=== PATIENT | female | born 1970 | race Caucasian/White ===

== ENCOUNTER → 2016-05-10 | Outpatient (CLI) | payer OTHER ==
[2016-05-10 14:01] LABS: ALT/SGPT 28 U/L (12-78); AST/SGOT 12 U/L (15-37); BLOOD UREA NITROGEN 13 mg/dl (7-18); BUN/CREATININE RATIO 13.8 (10-20); CALCIUM 8.3 mg/dl (8.5-10.1); CARBON DIOXIDE 21 mmol/L (21-32); CHLORIDE 112 mmol/L (98-107); CREATININE 0.94 mg/dl (0.60-1.20); GLUCOSE 121 mg/dl (70-99); POTASSIUM 4.1 mmol/L (3.5-5.1); SODIUM 143 mmol/L (136-145)
[2016-05-10 14:02] LABS: BASO % 0.4 %; BASO ABS # 0.03 K/uL (0-0.2); COMPLETE YES; EOS % 1.2 %; HEMATOCRIT 38.7 % (37-47); IG% 0.6 %; LYMPH % 32.3 %; LYMPH ABS # 2.22 K/uL (1.2-3.4); MEAN CELL VOLUME 87.4 fL (80-100); MEAN CORPUSCULAR HEMOGLOBIN 29.6 pg (25-34); MEAN CORPUSCULAR HGB CONC 33.9 g/dl (32-36); MEAN PLATELET VOLUME 10.6 fL (7.4-10.4); MONO % 7.4 %; NEUT % 58.1 %; PLATELET COUNT 167 K/uL (130-400); RED BLOOD COUNT 4.43 M/uL (4.2-5.4); WHITE BLOOD COUNT 6.87 K/uL (4.8-10.8)
[2016-05-10 14:12] LABS: ALB/GLOB RATIO 0.9 (0.9-2); ALKALINE PHOSPHATASE 108 U/L (45-117); CHOLESTEROL 173 mg/dl (0-200); CHOLESTEROL/HDL RATIO 3.1; HDL CHOLESTEROL 56 mg/dl; LDL CHOLESTEROL CALCULATED 95 mg/dl; TRIGLYCERIDES 109 mg/dl (0-150); VERY LOW DENSITY LIPOPROT CALC 22 mg/dl
== END | disposition home or self-care (01) ==
LOC: C.LABMFLN 08:02
PROVIDERS: ATTEND Family Medicine
DX: Z00.00 Encounter for general adult medical examination without abnormal findings (principal); K21.9 Gastro-esophageal reflux disease without esophagitis; K76.0 Fatty (change of) liver, not elsewhere classified; G43.909 Migraine, unspecified, not intractable, without status migrainosus; R53.83 Other fatigue; E66.9 Obesity, unspecified

== ENCOUNTER → 2016-08-21 | Outpatient (CLI) | payer OTHER ==
[~2016-08-21] MED LIST: ESCI10TA17 PO; MELO15TA4 PO; PANT40TA PO; POLY335019 PO; RIZA10TA18 PO; SERT-234 PO; TOPI25TA10 PO; TOPI25TA99 PO; TOPI50TA16; TOPI50TA16 PO; WHEATAB2 PO; ZLF/100 PO
[2016-08-21 14:30] LABS: ESTIMATED AVERAGE GLUCOSE 114 mg/dl; HA1C FLAG Normal (Normal)
[2016-08-21 14:46] LABS: ALT/SGPT 23 U/L (12-78); AST/SGOT 11 U/L (15-37); BLOOD UREA NITROGEN 16 mg/dl (7-18); BUN/CREATININE RATIO 17.3 (10-20); CARBON DIOXIDE 23 mmol/L (21-32); CHLORIDE 113 mmol/L (98-107); CREATININE 0.92 mg/dl (0.60-1.20); GLUCOSE 128 mg/dl (70-99); SODIUM 143 mmol/L (136-145)
[2016-08-21 14:49] LABS: ALB/GLOB RATIO 0.9 (0.9-2); ALKALINE PHOSPHATASE 95 U/L (45-117)
== END | disposition home or self-care (01) ==
LOC: C.LABMFLN 11:09
PROVIDERS: ATTEND Family Medicine
DX: R73.01 Impaired fasting glucose (principal); E55.9 Vitamin D deficiency, unspecified; E53.8 Deficiency of other specified B group vitamins

== ENCOUNTER → 2016-11-01 | Outpatient (CLI) | payer OTHER ==
[~2016-11-01] MED LIST changes: -SERT-234 PO; -TOPI25TA10 PO; -TOPI25TA99 PO; -TOPI50TA16; -ZLF/100 PO
[2016-11-01 17:51] LABS: BASO % 0.4 %; BASO ABS # 0.02 K/uL (0-0.2); COMPLETE YES; EOS % 1.1 %; HEMATOCRIT 34.2 % (37-47); IG% 0.4 %; LYMPH % 28.7 %; LYMPH ABS # 1.63 K/uL (1.2-3.4); MEAN CELL VOLUME 89.1 fL (80-100); MEAN CORPUSCULAR HEMOGLOBIN 29.2 pg (25-34); MEAN CORPUSCULAR HGB CONC 32.7 g/dl (32-36); MEAN PLATELET VOLUME 9.9 fL (7.4-10.4); MONO % 6.9 %; NEUT % 62.5 %; PLATELET COUNT 120 K/uL (130-400); RED BLOOD COUNT 3.84 M/uL (4.2-5.4); WHITE BLOOD COUNT 5.68 K/uL (4.8-10.8)
== END | disposition home or self-care (01) ==
LOC: C.LABMFLN 15:04
PROVIDERS: ATTEND Physician Assistant
DX: T14.8 Other injury of unspecified body region (principal); X58.XXXA Exposure to other specified factors, initial encounter

== ENCOUNTER → 2016-12-18 | Outpatient (CLI) | payer OTHER ==
[2016-12-18 14:03] LABS: BASO % 0.4 %; BASO ABS # 0.02 K/uL (0-0.2); COMPLETE YES; EOS % 1.4 %; HEMATOCRIT 36.2 % (37-47); IG% 0.2 %; LYMPH % 23.7 %; LYMPH ABS # 1.16 K/uL (1.2-3.4); MEAN CELL VOLUME 88.7 fL (80-100); MEAN CORPUSCULAR HEMOGLOBIN 29.2 pg (25-34); MEAN CORPUSCULAR HGB CONC 32.9 g/dl (32-36); MEAN PLATELET VOLUME 10.8 fL (7.4-10.4); MONO % 7.2 %; NEUT % 67.1 %; PLATELET COUNT 112 K/uL (130-400); RED BLOOD COUNT 4.08 M/uL (4.2-5.4); WHITE BLOOD COUNT 4.89 K/uL (4.8-10.8)
== END | disposition home or self-care (01) ==
LOC: C.LABMFLN 09:15
PROVIDERS: ATTEND Physician Assistant
DX: D64.9 Anemia, unspecified (principal); D69.6 Thrombocytopenia, unspecified; E55.9 Vitamin D deficiency, unspecified; E53.8 Deficiency of other specified B group vitamins

== ENCOUNTER → 2017-01-17 | Outpatient (CLI) | payer OTHER ==
[~2017-01-17] MED LIST changes: -ESCI10TA17 PO; +SERT-234 PO; +TOPI25TA10 PO; +TOPI25TA99 PO; +ZLF/100 PO
[2017-01-17 18:11] LABS: URINE APPEARANCE CLEAR (CLEAR); URINE BILIRUBIN NEG (NEG); URINE COLOR YELLOW; URINE NITRITE NEG (NEG); URINE PH 6.5 (4.5-7.5); URINE SPECIFIC GRAVITY 1.024 (1.000-1.030); UROBILINOGEN NEG (NEG); ZZUR CULT IF INDIC CLEAN CATCH NO
[2017-01-17 18:16] LABS: BASO % 0.6 %; BASO ABS # 0.03 K/uL (0-0.2); COMPLETE YES; HEMATOCRIT 34.2 % (37-47); IG% 0.2 %; LYMPH % 28.7 %; LYMPH ABS # 1.42 K/uL (1.2-3.4); MEAN CELL VOLUME 89.5 fL (80-100); MEAN CORPUSCULAR HEMOGLOBIN 29.3 pg (25-34); MEAN CORPUSCULAR HGB CONC 32.7 g/dl (32-36); MONO % 6.7 %; NEUT % 61.8 %; PLATELET COUNT 101 K/uL (130-400); PROTHROMBIN TIME (PATIENT) 10.5 SECONDS (9.0-12.0); RED BLOOD COUNT 3.82 M/uL (4.2-5.4); WHITE BLOOD COUNT 4.94 K/uL (4.8-10.8)
[2017-01-17 18:19] LABS: MANUAL MICROSCOPIC REQUIRED? NO; REVIEW REQ? NO
[2017-01-17 18:36] LABS: BLOOD UREA NITROGEN 19 mg/dl (7-18); BUN/CREATININE RATIO 20.8 (10-20); CALCIUM 8.1 mg/dl (8.5-10.1); CARBON DIOXIDE 21 mmol/L (21-32); CHLORIDE 114 mmol/L (98-107); CREATININE 0.92 mg/dl (0.60-1.20); GLUCOSE 81 mg/dl (70-99); POTASSIUM 3.8 mmol/L (3.5-5.1); SODIUM 144 mmol/L (136-145)
== END | disposition home or self-care (01) ==
LOC: C.LABMFLN 11:59
PROVIDERS: ATTEND Orthopaedic Surgery
DX: Z01.810 Encounter for preprocedural cardiovascular examination (principal); Z01.812 Encounter for preprocedural laboratory examination

== ENCOUNTER 2017-02-22 05:10 | Day surgery (SDC) | payer OTHER ==
[2016-12-14 10:44] VITALS: BMI 46.0
--- NOTE | 2016-12-14 11:27 | PAT Medication Instructions ---
Service Date Dec 14, 2016. Current Home Medication List Escitalopram (Lexapro), 10 MG PO QAM Meloxicam (Mobic), 1 TAB PO QAM Pantoprazole (Protonix), 40 MG PO QAM Polyethylene Glycol 3350 (Miralax), 17 GM PO DAILY PRN for Constipation Rizatriptan Benzoate (Maxalt), 10 MG PO UD PRN for Migraine Topiramate (Topamax), 50 MG PO BID Wheat Dextrin (Benefiber), 1 TAB PO UD PRN for Constipation Medication Instructions For Your Scheduled Surgery - Hold the following medications per your surgeon's instructions: Meloxicam (Mobic), 1 TAB PO QAM - Hold the following medications the morning of surgery: Wheat Dextrin (Benefiber), 1 TAB PO UD PRN for Constipation Rizatriptan Benzoate (Maxalt), 10 MG PO UD PRN for Migraine Polyethylene Glycol 3350 (Miralax), 17 GM PO DAILY PRN for Constipation - Take the following medications the morning of surgery with a sip of water: Topiramate (Topamax), 50 MG PO BID Escitalopram (Lexapro), 10 MG PO QAM Pantoprazole (Protonix), 40 MG PO QAM - Take the following medications as scheduled the night before surgery: Wheat Dextrin (Benefiber), 1 TAB PO UD PRN for Constipation Topiramate (Topamax), 50 MG PO BID Polyethylene Glycol 3350 (Miralax), 17 GM PO DAILY PRN for Constipation If you have any questions please call us at [phone] or [phone] or [phone]
[2016-12-14 12:55] LABS: PROTHROMBIN TIME (PATIENT) 10.8 SECONDS (9.0-12.0)
[2016-12-14 13:07] LABS: BUN/CREATININE RATIO 20.8 (10-20); CALCIUM 8.4 mg/dl (8.5-10.1); CREATININE 0.95 mg/dl (0.60-1.20); POTASSIUM 4.3 mmol/L (3.5-5.1)
[2016-12-14 13:36] LABS: URINE APPEARANCE CLEAR (CLEAR); URINE BILIRUBIN NEG (NEG); URINE COLOR YELLOW; URINE NITRITE NEG (NEG); URINE SPECIFIC GRAVITY 1.025 (1.000-1.030); UROBILINOGEN NEG (NEG); ZZUR CULT IF INDIC CLEAN CATCH NO
[2016-12-14 13:41] LABS: MANUAL MICROSCOPIC REQUIRED? NO; REVIEW REQ? NO
[2017-01-18 09:37] VITALS: BMI 46.0
--- NOTE | 2017-02-20 19:45 | History and Physical ---
History & Physical Date of Service Feb 20, 2017. History & Physical History & Physical Chief Complaint Right knee pain History of Present Illness The patient is a 46 year old female with complaints of right knee pain for some time. She has pain over the inside of her knee and difficulty going up and down stairs. She has tried PT with no relief. MRI demonstrates a medial meniscal tear. She is scheduled for a right partial medial meniscectomy. Past Medical/Surgical History Medical Problems: (1) Anxiety (2) Depression (3) Pulmonary embolism (4) Rheumatoid arthritis Additional History Hepatic Disease: No Endocrine Disorder: No Kidney Disease: No Hypertension: No Heart Disease: No Bleeding Tendencies: No Infectious Diseases: No Allergies Coded Allergies: Aspirin (Verified Allergy, Unknown, BREATHING ISSUES, 12/26/16) Latex1 -Allergic Contact Dermititis (Verified Allergy, Unknown, RASH, HIVES, 12/26/16) Levofloxacin (Verified Allergy, Unknown, VERTIGO, 12/26/16) Loratadine (Verified Allergy, Unknown, RASH, 12/26/16) Zafirlukast (Verified Allergy, Unknown, GI UPSET, 12/26/16) Uncoded Allergies: PRESTIQ (Allergy, Unknown, RASH, 12/14/16) Home Medications Scheduled Escitalopram (Lexapro), 10 MG PO QAM Meloxicam (Mobic), 15 MG PO QAM Pantoprazole (Protonix), 40 MG PO QAM Topiramate (Topamax), 50 MG PO QAM Topiramate (Topamax), 75 MG HS Scheduled PRN Polyethylene Glycol 3350 (Miralax), 17 GM PO DAILY PRN for Constipation Rizatriptan Benzoate (Maxalt), 10 MG PO UD PRN for Migraine Wheat Dextrin (Benefiber), 1 TAB PO UD PRN for Constipation Physical Examination Skin: warm/dry, no rash Eyes: normal inspection, EOMI ENT: normal ENT inspection Head: normocephalic, atraumatic Neck: supple, no adenopathy Respiratory/Chest: lungs clear, normal breath sounds Cardiovascular: regular rate, rhythm, no murmur Abdomen / GI: normal bowel sounds, non tender Extremities: normal inspection, + pertinent finding ((+) Meagan test. Ligaments are intact. ROM 0-110. ) Neurologic/Psych: alert, oriented x 3 Diagnosis Medial meniscal tear of right knee Plan of Treatment Patient is scheduled for a right knee PMM. She has failed conservative therapies of PT and NSAIDs. Risks and benefits were discussed to the surgery. Patient understands the risks and wishes to proceed. All questions were answered to her satisfaction.
[~2017-02-22] VITALS: Ht 157.5 cm; Wt 115.5 kg
[~2017-02-22 05:10] MED LIST changes: +CEFAZOLIN 2000MG IV PUSH 10 ML IV SCH; +LACTATED RINGER'S 1000ML 1,000 ML IV SCH; -TOPI25TA10 PO; -ZLF/100 PO
[2017-02-22 05:35] VITALS: BP 130/83; PULSE 58; TEMP 36.5; O2SAT 96; Ht 157.5 cm; Wt 115.5 kg
[2017-02-22] MEDS ORDERED: CEFAZOLIN 2000MG IV PUSH 10 ML IV SCH (06:00)
[2017-02-22] MEDS ORDERED: LACTATED RINGER'S 1000ML 1,000 ML IV SCH (06:15)
[2017-02-22] MEDS ORDERED: FLUO20CA35 PO (06:15)
[2017-02-22] MEDS ORDERED: MIDAZOLAM HCL 1 MG/ML 2ML VIAL ONE (06:32)
[2017-02-22] MEDS ORDERED: FENTANYL CITRATE INJ 50 MCG/1 ML 2 ML VIAL ONE ×2 (06:32→07:25)
[2017-02-22] MEDS ORDERED: LIDOCAINE/EPINEPHRINE 1% 20 ML VIAL ONE ×2 (06:40→07:11)
[2017-02-22] MEDS ORDERED: BUPIVACAINE 0.5 % 5 MG/1 ML MPF 30ML VIAL ONE (06:41)
[2017-02-22] MEDS ORDERED: EpINEphrine HCL INJ 1 MG/ML 5ML SYRINGE ONE (06:41)
--- NOTE | 2017-02-22 06:57 | History & Physical Bridge Note ---
H&P Re-Evaluation Bridge Note: I have examined the patient, reviewed the History & Physical and in the interval since the performance of the History & Physical I have noted the following changes of clinical significance: No changes noted
[2017-02-22 06:58] LABS: HEMATOCRIT 34.6 % (37-47); MEAN CELL VOLUME 88.9 fL (80-100); MEAN CORPUSCULAR HEMOGLOBIN 28.3 pg (25-34); RED BLOOD COUNT 3.89 M/uL (4.2-5.4); WHITE BLOOD COUNT 4.53 K/uL (4.8-10.8)
[2017-02-22] MEDS ORDERED: HYDR-5688 PO (07:15)
[2017-02-22] MEDS ORDERED: HYDROCODONE/ACETAMOPHEN 5/325MG TAB PO PRN ×2 (07:15)
[2017-02-22] MEDS ORDERED: ONDANSETRON INJ 2 MG/ML 2 ML VIAL IV PRN ×2 (07:15→07:30)
[2017-02-22] MEDS ORDERED: ACETAMINOPHEN 325 MG TAB PO PRN (07:15)
--- NOTE | 2017-02-22 07:20 | Discharge Instructions ---
Discharge Instructions Date of Service Feb 22, 2017. Admission Reason for Admission: Right Knee Medial Meniscus Tear Discharge Discharge Diagnosis / Problem: S/P PMM Discharge Goals Goal(s): Decrease discomfort, Improve function Activity Recommendations Activity Limitations: per Instructions/Follow-up section . Instructions / Follow-Up Instructions / Follow-Up ACTIVITY RECOMMENDATIONS: * You may walk on the leg with or without crutches as comfort permits. * Bending of the knee should start at once. * Do not shower for 48 hours following surgery. SPECIAL CARE INSTRUCTIONS: * You may cleanse the skin adjacent to the small wounds with soap and water at the time of the first dressing change. * The application of an ice bag to the front and sides of the knee will decrease swelling and discomfort for the first 48 hours. * The small incisions may be sore and develop bruising. This bruising does not require any special care. SPECIAL PRECAUTIONS: * If you experience unusual pain unrelieved by prescriptions, temperature elevation (100 degrees F. or above) or progressive swelling or bleeding, you should contact our office at for further evaluation. * You may have been prescribed pain medication. If you experience nausea and/or fine skin rash, discontinue this medication and contact our office at for an alternate medication. DRESSING: * Dressing should be comfortable and absorb any leakage of fluid and/or blood. * The dressing may become moist or bloodstained. * Dressing may be removed 48 hours after surgery and bandaids placed over the small surgical incisions. If can be removed sooner if it becomes very soiled or loose. * Bandaids may be used over next several days as needed and can be discontinued when there is not further drainage from the wounds. FOLLOW UP VISIT: If appointment is not already scheduled: Please call [facility] to make a follow-up appointment for [address] Robertson or his PA at . Current Hospital Diet Patient's current hospital diet: Regular Diet Discharge Diet Recommended Diet: Regular Diet Pending Studies Studies pending at discharge: no Medical Emergencies . Who to Call and When: Medical Emergencies: If at any time you feel your situation is an emergency, please call 911 immediately. . Non-Emergent Contact Non-Emergency issues call your: Surgeon Call Non-Emergent contact if: temperature is above 101.5, your pain is worsening, wound has increased drainage, wound has increased redness . "Provider Documentation" section prepared by Carson Martini. . VTE Core Measure Inpt VTE Proph given/why not?: Treatment not indicated [place] Drug Monitoring Program Search Results: patient reviewed within database, no issues identified
[2017-02-22] MEDS ORDERED: ONDANSETRON INJ 2 MG/ML 2 ML VIAL ONE ×2 (07:22→07:47)
[2017-02-22] MEDS ORDERED: DEXAMETHASONE SOD INJ 4 MG/ML VIAL ONE (07:22)
[2017-02-22] MEDS ORDERED: PROPOFOL IV EMULSION 10 MG/ML 20 ML VIAL IV ONE (07:22)
[2017-02-22] MEDS ORDERED: SUCCINYLCHOLINE 100MG/5ML SYR IV ONE (07:22)
[2017-02-22] MEDS ORDERED: LIDOCAINE HCL 2% 2 ML VIAL (20MG/ML) ONE (07:22)
[2017-02-22] MEDS ORDERED: LARYING-O-JET KIT (LTA) ONE ×2 (07:29)
[2017-02-22] MEDS ORDERED: ATROPINE SULFATE 0.1 MG/ML 5ML SYR IV PRN (07:30)
[2017-02-22] MEDS ORDERED: FENTANYL CITRATE INJ 50 MCG/1 ML 2 ML VIAL IV PRN (07:30)
[2017-02-22] MEDS ORDERED: EpHEDrine SULFATE INJ 50 MG/ML AMP IV PRN (07:30)
[2017-02-22] MEDS ORDERED: HYDROmorphone INJ 1 MG/ML SYR IV PRN (07:30)
[2017-02-22] MEDS ORDERED: HYDROmorphone INJ 2 MG/ML SYR/VIAL ONE (07:42)
[2017-02-22] MEDS ORDERED: KETOROLAC TROMETHAMINE 30 MG/ML VIAL ONE (07:47)
[2017-02-22 08:01] LABS: MEAN CORPUSCULAR HGB CONC 31.8 g/dl (32-36); MEAN PLATELET VOLUME 10.3 fL (7.4-10.4); PLATELET COUNT 90 K/uL (130-400); PLT ESTIMATE DECREASED
[2017-02-22 08:40] VITALS: BP 136/75; PULSE 62; TEMP 36.5; O2SAT 94
--- NOTE | 2017-02-22 08:49 | Anesthesiology Progress Note ---
Anesthesia Post Op Note Date & Time Feb 22, 2017 at 08:48 Vital Signs Pain Intensity: 1 Vital Signs Past 12 Hours Date Time Temp Pulse Resp B/P (MAP) Pulse Ox O2 Delivery O2 Flow Rate FiO2 02/22/17 08:20 Room Air 02/22/17 07:56 36.3 84 16 144/98 96 Oxymask 7 02/22/17 05:35 36.5 58 20 130/83 (99) 96 Room Air Notes Mental Status: alert / awake / arousable, participated in evaluation Pt Amnestic to Procedure: Yes Nausea / Vomiting: adequately controlled Pain: adequately controlled Airway Patency, RR, SpO2: stable & adequate BP & HR: stable & adequate Hydration State: stable & adequate Anesthetic Complications: no major complications apparent
[2017-02-22 09:10] VITALS: BP 118/70; PULSE 59; TEMP 36.6; O2SAT 95
[2017-02-22] MEDS ORDERED: HYDROCODONE/ACETAMOPHEN 5/325MG TAB ONE (09:17)
--- NOTE | 2017-02-22 18:26 | [facility] Operative Report ---
Operative Report Operative Date Feb 22, 2017. Pre-Operative Diagnosis Medial meniscal tear of right knee Post-Operative Diagnosis Medial meniscal tear of right knee, lateral meniscal tear, chondromalacia lateral femoral condyle, chondromalacia trochlea, loose bodies Procedure(s) Performed Right Knee Arthroscopy with Partial Meniscectomy, partial lateral meniscectomy, chondroplasty lateral femoral condyle, chondroplasty trochlea, removal loose bodies Surgeon Dr. Chip Robertson Scraper Hand Surgeon(s) none Estimated Blood Loss 1mL Findings As above Specimens None, Per Surgeon Drains none Anesthesia Gen. Complication(s) None Disposition Recovery Room / PACU Indications 46-year-old female with long-standing right knee. She's fill conservative measures. MRI demonstrates tearing a meniscus. She wishes to proceed with arthroscopy. Description of Procedure MRI demonstrated a complex tear of the posterior horn of the medial meniscus. We discussed various treatment measures. The patient wished to proceed with arthroscopic partial lateral meniscectomy. Risks, benefits and alternatives to surgery including, but not limited to, infection, DVT, pain, stiffness, need for revision surgery, failure to relieve all symptoms, damage to blood vessels, damage to nerves, risk of the anesthesia were discussed with the patient and they wished to proceed. The patient was identified. Laterality was confirmed and marked. The patient received a preoperative antibiotic. They were transferred to the operating room and placed in supine position and induced into general endotracheal anesthesia per the anesthesia staff. A well-padded tourniquet was placed on the thigh and the limb was prepped and draped in the usual standard manner with ChloraPrep. The limb was exsanguinated and the tourniquet was inflated. I made a standard anterolateral viewing portal made through a stab incision and bluntly entered the suprapatellar pouch. Then under spinal needle localization I established an anteromedial portal. There was grade 2 and 3 cartilage of the patella. There was grade 2 and 3 cartilage of the trochlea.The unstable chondral flaps were debrided back to stable base utilizing a shaver. There was grade 2 cartilage of the medial femoral condyle. There was grade 2 cartilage of the medial tibial plateau. The medial meniscus had a tear of the posterior horn. This was a horizontal cleavage type tear with a small radial component near the meniscal root.The unstable chondral flaps were debrided back to stable base utilizing a shaver and meniscus biter. The ACL and PCL were probed and were normal. There was a complex tear of the posterior horn of the lateral meniscus. This was debrided back to a stable base utilizing combination of the shaver as well as meniscal biter. There was grade 3 cartilage of the lateral femoral condyle.The unstable chondral flaps were debrided back to stable base utilizing a shaver. There was grade 1 cartilage of the lateral tibial plateau. There were several loose bodies in the lateral compartment the largest measured 5 mm x 5 mm. These were removed with the arthroscopic shaver. All of the instrumentation was removed from the knee. The portal sites were closed with nylon. A sterile dressing was applied and the tourniquet was released. All needle and sponge counts were correct at the end of the procedure. The patient was transferred to the PACU in stable condition without apparent complication. I attest to the content of the Intraoperative Record and any orders documented therein. Any exceptions are noted below.
== END 2017-02-22 09:45 | disposition home or self-care (01) ==
LOC: C.ACU 05:10
PROVIDERS: ATTEND Orthopaedic Surgery
DX: S83.231A Complex tear of medial meniscus, current injury, right knee, initial encounter (principal); S83.271A Complex tear of lateral meniscus, current injury, right knee, initial encounter; M94.29 Chondromalacia, multiple sites; M19.90 Unspecified osteoarthritis, unspecified site; F32.9 Major depressive disorder, single episode, unspecified; F41.9 Anxiety disorder, unspecified; Z86.711 Personal history of pulmonary embolism; G47.33 Obstructive sleep apnea (adult) (pediatric); K21.9 Gastro-esophageal reflux disease without esophagitis; E66.01 Morbid (severe) obesity due to excess calories; Z87.442 Personal history of urinary calculi; X58.XXXA Exposure to other specified factors, initial encounter

== ENCOUNTER → 2017-03-15 | Outpatient (CLI) | payer OTHER ==
[~2017-03-15] MED LIST changes: -CEFAZOLIN 2000MG IV PUSH 10 ML IV SCH; +CHOL1000 PO; +CYAN10005 PO; +FLUO20CA35 PO; +HYDR-5688 PO; -LACTATED RINGER'S 1000ML 1,000 ML IV SCH; +PROP1TAB PO
== END | disposition home or self-care (01) ==
LOC: C.LABMFLN 14:52
PROVIDERS: ATTEND Physician Assistant
DX: R15.9 Full incontinence of feces (principal); R19.7 Diarrhea, unspecified

== ENCOUNTER → 2017-03-29 | Day surgery (SDC) | payer OTHER ==
[2017-03-28 14:04] VITALS: Ht 157.5 cm; Wt 110.0 kg
[~2017-03-29] VITALS: Ht 157.5 cm; Wt 110.0 kg
[~2017-03-29] MED LIST changes: +ATROPINE SULFATE 0.1 MG/ML 5ML SYR IV PRN; +EpHEDrine SULFATE INJ 50 MG/ML AMP IV PRN; -HYDR-5688 PO; +LIDOCAINE HCL 2% 2 ML VIAL (20MG/ML) ONE; -MELO15TA4 PO; +MIDAZOLAM HCL 1 MG/ML 2ML VIAL ONE; +ONDANSETRON INJ 2 MG/ML 2 ML VIAL ONE; +PROPOFOL IV EMULSION 10 MG/ML 20 ML VIAL IV ONE; -SERT-234 PO; +SODIUM CHLORIDE 0.9% 500ML 500 ML IV ONE; -WHEATAB2 PO
--- NOTE | 2017-03-29 15:51 | Endo History and Physical ---
History & Physical Date of Service: Mar 29, 2017. Chief Complaint: diarrhea Referring Physician: Janae Farrell History of Present Illness 46 yo CF who presents for colonoscopy secondary to diarrhea. Past Surgical History Hx Cardiac Surgery: No Hx Internal Defibrillator: No Hx Pacemaker: No Hx Abdominal Surgery: Yes (c section x3, tubal, lap LSO, alam, partial hysterectomy then full hyster) Hx of Implantable Prosthesis: No Hx Post-Op Nausea and Vomiting: No Hx Cancer Surgery: No Hx Orthopedic: Yes (B/L CTR , RT ELBOW ULNAR NERVE RELEASE, RT KNEE SCOPE) Hx Urinary Tract Surgery: No Family History Colon CA Social History Smoking Status: Never Smoker Hx Substance Use: No Hx Alcohol Use: No Allergies Coded Allergies: Aspirin (Verified Allergy, Unknown, BREATHING ISSUES, 03/28/17) Desvenlafaxine (Verified Allergy, Unknown, rash, 03/29/17) Latex1 -Allergic Contact Dermititis (Verified Allergy, Unknown, RASH, HIVES, 03/28/17) Levofloxacin (Verified Allergy, Unknown, VERTIGO, 03/28/17) Loratadine (Verified Allergy, Unknown, RASH, 03/28/17) Zafirlukast (Verified Allergy, Unknown, GI UPSET, 03/28/17) Current Medications Reported Home Medications Medications Dose Route/Sig Max Daily Dose Days Date Category Inderal (Propranolol HCl) 60 Mg Tab 60 Mg PO QAM 03/28/17 Reported Vitamin B-12 (Cyanocobalamin) 1,000 Mcg Tab 1,000 Mcg PO QAM 03/28/17 Reported Vitamin D3 (Cholecalciferol) 1,000 Unit Tab 1 Tab PO QAM 03/28/17 Reported Prozac (Fluoxetine HCl) 20 Mg Cap 20 Mg PO QAM 02/22/17 Reported Topamax (Topiramate) 25 Mg Tab 25 Mg PO HS 01/18/17 Reported Topamax (Topiramate) 50 Mg Tab 50 Mg PO QAM 01/18/17 Reported Miralax (Polyethylene Glycol 3350) 1 Pow Pow 17 Gm PO DAILY PRN 12/14/16 Reported Protonix (Pantoprazole Sodium) 40 Mg Tab 40 Mg PO QAM 12/14/16 Reported Maxalt (Rizatriptan Benzoate) 10 Mg Tab 10 Mg PO UD PRN 12/14/16 Reported Vital Signs Weight (Kilograms): 110 Height (Feet): 5 Height (Inches): 2 Date Time Temp Pulse Resp B/P (MAP) Pulse Ox O2 Delivery O2 Flow Rate FiO2 03/29/17 15:34 61 104/52 97 03/29/17 14:42 36.5 70 18 133/74 (93) 98 Room Air Physical Exam General Appearance: WD/WN, no apparent distress Respiratory/Chest: Auscultation: breath sounds normal Cardiovascular: Heart Auscultation: RRR Abdomen: Bowel Sounds: normal Inspection & Palpation: soft, non-distended, no tenderness, guarding & rebound Assessment and Plan Assessment: 46 yo CF who presents for colonoscopy secondary to diarrhea. Plan: Proceed with colonoscopy.
--- NOTE | 2017-03-29 16:30 | Anesthesiology Progress Note ---
Anesthesia Post Op Note Date & Time Mar 29, 2017 at 16:29 Vital Signs Vital Signs Past 12 Hours Date Time Temp Pulse Resp B/P (MAP) Pulse Ox O2 Delivery O2 Flow Rate FiO2 03/29/17 16:13 69 18 103/64 (77) 95 Room Air 03/29/17 15:34 61 104/52 97 03/29/17 14:42 36.5 70 18 133/74 (93) 98 Room Air Notes Mental Status: alert / awake / arousable, participated in evaluation Pt Amnestic to Procedure: Yes Nausea / Vomiting: adequately controlled Pain: adequately controlled Airway Patency, RR, SpO2: stable & adequate BP & HR: stable & adequate Hydration State: stable & adequate Anesthetic Complications: no major complications apparent
--- NOTE | 2017-03-29 16:32 | Discharge Instructions ---
Endoscopy Patient Instructions Date / Procedure(s) Performed Mar 29, 2017. Colonoscopy Allergy Information Coded Allergies: Aspirin (Verified Allergy, Unknown, BREATHING ISSUES, 03/28/17) Desvenlafaxine (Verified Allergy, Unknown, rash, 03/29/17) Latex1 -Allergic Contact Dermititis (Verified Allergy, Unknown, RASH, HIVES, 03/28/17) Levofloxacin (Verified Allergy, Unknown, VERTIGO, 03/28/17) Loratadine (Verified Allergy, Unknown, RASH, 03/28/17) Zafirlukast (Verified Allergy, Unknown, GI UPSET, 03/28/17) Discharge Date / Findings Mar 29, 2017. Random colon biopsies Stool aspirate collected Internal hemorrhoids Medication Instructions OK to resume all medications today as prescribed Reported Home Medications Medications Dose Route/Sig Max Daily Dose Days Date Category Inderal (Propranolol HCl) 60 Mg Tab 60 Mg PO QAM 03/28/17 Reported Vitamin B-12 (Cyanocobalamin) 1,000 Mcg Tab 1,000 Mcg PO QAM 03/28/17 Reported Vitamin D3 (Cholecalciferol) 1,000 Unit Tab 1 Tab PO QAM 03/28/17 Reported Prozac (Fluoxetine HCl) 20 Mg Cap 20 Mg PO QAM 02/22/17 Reported Topamax (Topiramate) 25 Mg Tab 25 Mg PO HS 01/18/17 Reported Topamax (Topiramate) 50 Mg Tab 50 Mg PO QAM 01/18/17 Reported Miralax (Polyethylene Glycol 3350) 1 Pow Pow 17 Gm PO DAILY PRN 12/14/16 Reported Protonix (Pantoprazole Sodium) 40 Mg Tab 40 Mg PO QAM 12/14/16 Reported Maxalt (Rizatriptan Benzoate) 10 Mg Tab 10 Mg PO UD PRN 12/14/16 Reported Provider Instructions Activity Restrictions - No exercising or heavy lifting for 24 hours. - Do not drink alcohol the day of the procedure. - Do not drive a car or operate machinery until the day after the procedure. - Do not make any important decisions or sign important papers in 24 hours after the procedure. Following Day: - Return to full activity which may include returning to work/school. Diet Start your diet with liquids and light foods (jello, soup, juice, toast). Then eat your usual diet if not nauseated. Treatment For Common After Affects For mild abdominal pain, bloating, or excessive gas: - Rest - Eat lightly - Lie on right side Follow-Up Information Follow-up with Janae Farrell as scheduled Anesthesia Information What You Should Know You have had a procedure that required some medicine to reduce anxiety and discomfort. This treatment is called moderate sedation. After receiving the treatment, you may be sleepy, but you will be able to breathe on your own. The effects of the treatment may last for several hours. Follow these instructions along with Activity/Diet recommendations noted above: * Do NOT do anything where dizziness or clumsiness would be dangerous. * Rest quietly at home today, then you can be up and about tomorrow. * Have a responsible person stay with you the rest of today. * You may have had an I.V. today. If so, you may take the dressing off later today. Recommendations Call your doctor if: * Trouble breathing * Continuous vomiting for more than 24 hours * Temperature above 101 degrees * Severe abdominal pain or bloating * Pain not relieved by pain medicine ordered * There is increased drainage or redness from any incision * A large amount of rectal bleeding greater than 2-3 tablespoons. (If you had a polyp/s removed or have hemorrhoids, a small amount of blood - from the rectum is to be expected.) * You have any unanswered questions or concerns. IN THE EVENT OF A SERIOUS EMERGENCY, GO TO THE NEAREST EMERGENCY ROOM Your discharge instructions were prepared by provider Cristopher Gibbons. Patient Instructions Signature Page Brandi Chavira Patient (or Guardian) Signature/Date: I have read and understand the instructions given to me by my caregivers. Caregiver/RN/Doctor Signature/Date: The above-named patient and/or guardian has received patient instructions on this date. + Original Patient Signature Page (only) stays with chart. Please make copy for patient.
--- NOTE | 2017-03-29 16:41 | GI REPORT ---
Procedure Date: 03/29/2017 3:24 PM Procedure: Colonoscopy Indications: Chronic diarrhea Medicines: Monitored Anesthesia Care Complications: No immediate complications. Estimated Blood Loss: Estimated blood loss: none. Procedure: Pre-Anesthesia Assessment: - Prior to the procedure, a History and Physical was performed, and patient medications and allergies were reviewed. The patient's tolerance of previous anesthesia was also reviewed. The risks and benefits of the procedure and the sedation options and risks were discussed with the patient. All questions were answered, and informed consent was obtained. Prior Anticoagulants: The patient has taken no previous anticoagulant or antiplatelet agents. ASA Grade Assessment: III - A patient with severe systemic disease. After reviewing the risks and benefits, the patient was deemed in satisfactory condition to undergo the procedure. After I obtained informed consent, the scope was passed under direct vision. Throughout the procedure, the patient's blood pressure, pulse, and oxygen saturations were monitored continuously. The On-site loaner was introduced through the anus and advanced to the terminal ileum. The colonoscopy was performed without difficulty. The patient tolerated the procedure well. The quality of the bowel preparation was fair. The terminal ileum, the appendiceal orifice and the rectum were photographed. Findings: The perianal and digital rectal examinations were normal. Several random biopsies were obtained with cold forceps for histology in the entire colon. Fluid aspiration for Stool studies was performed in the entire colon. Non-bleeding internal hemorrhoids were found during retroflexion. The hemorrhoids were small. Impression: - Non-bleeding internal hemorrhoids. - Several random biopsies were obtained in the entire colon. - Fluid aspiration was performed. Recommendation: - Resume previous diet. - Continue present medications. - Repeat colonoscopy for surveillance based on pathology results. - Return to primary care physician as previously scheduled. Cristopher Gibbons DO 03/29/2017 4:40:52 PM This report has been signed electronically. Note Initiated On: 03/29/2017 3:24 PM I attest to the content of the Intraoperative Record and orders documented therein, exceptions below
[2017-03-29 16:45] VITALS: BP 122/76; PULSE 56; O2SAT 96
== END | disposition home or self-care (01) ==
LOC: C.GI 14:12
PROVIDERS: ATTEND Internal Medicine
DX: K52.9 Noninfective gastroenteritis and colitis, unspecified (principal); K64.8 Other hemorrhoids; G47.33 Obstructive sleep apnea (adult) (pediatric); Z86.711 Personal history of pulmonary embolism; E66.9 Obesity, unspecified; G43.909 Migraine, unspecified, not intractable, without status migrainosus; Z91.040 Latex allergy status; Z90.49 Acquired absence of other specified parts of digestive tract; Z98.51 Tubal ligation status; Z90.710 Acquired absence of both cervix and uterus; Z98.890 Other specified postprocedural states; Z87.891 Personal history of nicotine dependence; Z80.0 Family history of malignant neoplasm of digestive organs

== ENCOUNTER → 2017-04-20 | Outpatient (CLI) | payer OTHER ==
[~2017-04-20] MED LIST changes: -ATROPINE SULFATE 0.1 MG/ML 5ML SYR IV PRN; -EpHEDrine SULFATE INJ 50 MG/ML AMP IV PRN; -LIDOCAINE HCL 2% 2 ML VIAL (20MG/ML) ONE; -MIDAZOLAM HCL 1 MG/ML 2ML VIAL ONE; -ONDANSETRON INJ 2 MG/ML 2 ML VIAL ONE; -PROPOFOL IV EMULSION 10 MG/ML 20 ML VIAL IV ONE; -SODIUM CHLORIDE 0.9% 500ML 500 ML IV ONE
[2017-04-20 12:48] LABS: BASO % 0.6 %; BASO ABS # 0.03 K/uL (0-0.2); EOS % 1.1 %; EOS ABS # 0.05 K/uL (0-0.5); HEMATOCRIT 36.6 % (37-47); HEMOGLOBIN 12.3 g/dL (12.0-16.0); IG# 0.01 K/uL (0.00-0.02); LYMPH % 24.6 %; LYMPH ABS # 1.16 K/uL (1.2-3.4); MEAN CELL VOLUME 86.7 fL (80-100); MEAN CORPUSCULAR HEMOGLOBIN 29.1 pg (25-34); MEAN CORPUSCULAR HGB CONC 33.6 g/dl (32-36); MEAN PLATELET VOLUME 10.5 fL (7.4-10.4); MONO % 6.6 %; MONO ABS # 0.31 K/uL (0.11-0.59); NEUT % 66.9 %; NEUT ABS # 3.16 K/uL (1.4-6.5); PLATELET COUNT 114 K/uL (130-400); RED CELL DISTRIBUTION WIDTH CV 15.4 % (11.5-14.5); RED CELL DISTRIBUTION WIDTH SD 48.4 fL (36.4-46.3); WHITE BLOOD COUNT 4.72 K/uL (4.8-10.8)
[2017-04-20 13:38] LABS: ALBUMIN 3.3 gm/dl (3.4-5.0); ALT/SGPT 25 U/L (12-78); AST/SGOT 12 U/L (15-37); BLOOD UREA NITROGEN 22 mg/dl (7-18); CALCIUM 8.3 mg/dl (8.5-10.1); CARBON DIOXIDE 22 mmol/L (21-32); CREATININE 1.12 mg/dl (0.60-1.20); GLUCOSE 123 mg/dl (70-99); SODIUM 141 mmol/L (136-145)
[2017-04-20 13:48] LABS: ALKALINE PHOSPHATASE 97 U/L (45-117); CHOLESTEROL 178 mg/dl (0-200); LDL CHOLESTEROL CALCULATED 114 mg/dl
== END | disposition home or self-care (01) ==
LOC: C.LABMFLN 09:09
PROVIDERS: ATTEND Physician Assistant
DX: R15.9 Full incontinence of feces (principal); R19.7 Diarrhea, unspecified; Z79.899 Other long term (current) drug therapy

== ENCOUNTER → 2017-10-08 | Outpatient (CLI) | payer OTHER | END | disposition home or self-care (01) | LOC: C.LAB1850 15:59 | PROVIDERS: ATTEND Internal Medicine Endocrinology, Diabetes & Metabolism | DX: E55.9 Vitamin D deficiency, unspecified (principal); E83.51 Hypocalcemia; R19.7 Diarrhea, unspecified ==

== ENCOUNTER 2021-12-08 06:04 | Observation (INO) ==
--- NOTE | 2021-10-28 09:16 | PAT Medication Instructions ---
Medication Instructions Date of Service October 28, 2021 Home Medications Medication Instructions Recorded blood-glucose meter #1 ea 06/09/20 lancets 30 gauge #100 ea 06/09/20 gabapentin 400 mg capsule 400 mg PO TID #90 caps 09/17/20 pen needle, diabetic 31 gauge x #100 ea 04/01/2107/18" (BD Ultra-Fine Short Pen Needle) zolmitriptan 5 mg tablet (Zomig) 5 mg PO .COMPLEX PRN migraine 04/04/21 headache #9 tabs blood sugar diagnostic (Blood #100 ea 06/03/21 Glucose Test strips) albuterol sulfate 2.5 mg/3 mL 2.5 mg (3 mL) inhalation QID PRN 06/08/21 (0.083 %) solution for nebulization shortness of breath or wheezing #180 mL compressor, for nebulizer #1 ea 06/08/21 nebulizer accessories #1 ea 06/08/21 pantoprazole 40 mg tablet,delayed See Rx Instructions .Route 07/22/21 release .COMPLEX #60 tabs eptinezumab-jjmr 100 mg/mL 100 mg IV .COMPLEX #1 mL 08/04/21 intravenous solution (Vyepti) dulaglutide 4.5 mg/0.5 mL 4.5 mg (0.5 mL) subcut .weekly #2 10/03/21 subcutaneous pen injector mL (Trulicity) insulin lispro protamine-lispro 40 unit (0.4 mL) subcut BID #15 mL 10/10/21 100 unit/mL (75-25) subcutaneous pen pull up - adult large See Rx Instructions .Route 10/10/21 .COMPLEX #180 units metformin 1,000 mg tablet 1,000 mg PO BID #60 tabs 10/18/21 bupropion HCl 100 mg tablet 100 mg PO BID albuterol sulfate 90 mcg/actuation aerosol inhaler (Ventolin HFA) 2 puff inhalation Q6H PRN loperamide 2 mg capsule 2 mg PO Q6H PRN blood-glucose meter lancets 30 gauge aripiprazole 10 mg tablet 10 mg PO QPM etodolac 300 mg capsule 300 mg PO BID fluoxetine 40 mg capsule 30 mg PO QAM gabapentin 400 mg capsule 400 mg PO TID lamotrigine 25 mg tablet 50 mg PO HS pen needle, diabetic 31 gauge x 5/16" (BD Ultra-Fine Short Pen Needle) zolmitriptan 5 mg tablet (Zomig) 5 mg PO .COMPLEX PRN blood sugar diagnostic (Blood Glucose Test strips) albuterol sulfate 2.5 mg/3 mL (0.083 %) solution for nebulization 2.5 mg (3 mL) inhalation QID PRN compressor, for nebulizer nebulizer accessories pantoprazole 40 mg tablet,delayed release See Rx Instructions .Route .COMPLEX eptinezumab-jjmr 100 mg/mL intravenous solution (Vyepti) 100 mg IV .COMPLEX dulaglutide 4.5 mg/0.5 mL subcutaneous pen injector (Trulicity) 4.5 mg (0.5 mL) subcut .weekly insulin lispro protamine-lispro 100 unit/mL (75-25) subcutaneous pen 40 unit (0.4 mL) subcut BID pull up - adult large See Rx Instructions .Route metformin 1,000 mg tablet 1,000 mg PO BID clonidine HCl 0.1 mg tablet 0.1 mg PO HS fluoxetine 20 mg capsule 40 mg PO HS fluticasone furoate 100 mcg-vilanterol 25 mcg/dose inhalation powder (Breo Ellipta) 2 inh inhalation QAM lisinopril 5 mg tablet 5 mg PO QAM Continue as directed pantoprazole 40 mg tablet,delayed release See Rx Instructions .Route .COMPLEX zolmitriptan 5 mg tablet (Zomig) 5 mg PO .COMPLEX PRN(if needed) dulaglutide 4.5 mg/0.5 mL subcutaneous pen injector (Trulicity) 4.5 mg (0.5 mL) subcut .weekly ASK your surgeon for instructions etodolac 300 mg capsule 300 mg PO BID ASK your prescriber and surgeon aripiprazole 10 mg tablet 10 mg PO QPM-if no prescriber concerns or recommendations, continue medication as usual eptinezumab-jjmr 100 mg/mL intravenous solution (Vyepti) 100 mg IV .COMPLEX DO NOT take the morning of surgery loperamide 2 mg capsule 2 mg PO Q6H PRN metformin 1,000 mg tablet 1,000 mg PO BID lisinopril 5 mg tablet 5 mg PO QAM Take morning of surgery With a small sip of water, OTHERWISE NOTHING TO EAT OR DRINK AFTER MIDNIGHT: bupropion HCl 100 mg tablet 100 mg PO BID albuterol sulfate 90 mcg/actuation aerosol inhaler (Ventolin HFA) 2 puff inhalation Q6H PRN(use if needed; please bring with you to hospital day of surgery if possible) fluoxetine 40 mg capsule 30 mg PO QAM gabapentin 400 mg capsule 400 mg PO TID albuterol sulfate 2.5 mg/3 mL (0.083 %) solution for nebulization 2.5 mg (3 mL) inhalation QID PRN(if needed) fluticasone furoate 100 mcg-vilanterol 25 mcg/dose inhalation powder (Breo Ellipta) 2 inh inhalation QAM Take evening before surgery bupropion HCl 100 mg tablet 100 mg PO BID albuterol sulfate 90 mcg/actuation aerosol inhaler (Ventolin HFA) 2 puff inhalation Q6H PRN(if needed) loperamide 2 mg capsule 2 mg PO Q6H PRN gabapentin 400 mg capsule 400 mg PO TID lamotrigine 25 mg tablet 50 mg PO HS albuterol sulfate 2.5 mg/3 mL (0.083 %) solution for nebulization 2.5 mg (3 mL) inhalation QID PRN(if needed) insulin lispro protamine-lispro 100 unit/mL (75-25) subcutaneous pen 40 unit (0.4 mL) subcut BID metformin 1,000 mg tablet 1,000 mg PO BID clonidine HCl 0.1 mg tablet 0.1 mg PO HS fluoxetine 20 mg capsule 40 mg PO HS Insulin Dependent Diabetic Patients * Test your blood sugar the morning of surgery * If Blood Sugar is GREATER THAN 150, take HALF of your regular dose of: insulin lispro protamine-lispro 100 unit/mL (75-25) subcutaneous pen subcut BID-take 20 units. * If Blood Sugar is LESS THAN 150, DO NOT TAKE ANY: insulin lispro protamine- lispro 100 unit/mL (75-25). Other Notes If you have any questions please call us at [phone] or [phone] or [phone] or [phone]
--- NOTE | 2021-11-03 10:10 | Anesthesiology Consultation ---
Date of Service November 03, 2021 Assessment & Plan (1) Encounter for pre-operative examination: - Patient acceptable risk for surgery pending surgeon-ordered PCP preop evaluation (scheduled 11/18; [facility]). - COVID screening: Per assessment on 11/03 No known COVID-19 positive contacts or current COVID-19 related symptoms. Travel screen negative. Patient vaccinated. At surgeon discretion if preop Covid testing being done. - Check [facility] AM DOS Chart Review Chart Review: Patient seen in Pre Admission Testing Teaching & Discussion Pre-Anesthesia Teaching/Discussion Notes: Instructed NPO after midnight before surgery,except medications with 15 cc of water. Medication instructions provided according to the PAT guidelines. History Surgery Operation Date: 12/07/21 12:45 Proposed Procedures p Right Total Knee Arthroplasty - Von Chirinos MD Height/Weight Height: 5 ft 2 in Weight: 104.5 kg Allergies Allergy/AdvReac Type Severity Reaction Status Date / Time moxifloxacin [From Avelox] Allergy Severe Anaphylaxis Verified 10/27/21 13:12 aspirin Allergy Unknown BREATHING Verified 10/27/21 13:12 ISSUES desvenlafaxine Allergy Unknown rash Verified 10/27/21 13:12 latex Allergy Unknown RASH, Verified 10/27/21 13:12 HIVES,SOB levofloxacin Allergy Unknown VERTIGO Verified 10/27/21 13:12 loratadine Allergy Unknown RASH Verified 10/27/21 13:12 zafirlukast Allergy Unknown GI UPSET Verified 10/27/21 13:12 divalproex sodium AdvReac Unknown SWELLING/WEIGHT Verified 10/27/21 13:12 [From Depakote] GAIN Medications Home Medications Medication Instructions Recorded Confirmed Last Taken bupropion HCl 100 mg tablet 100 mg PO BID 04/09/19 10/27/21 Unknown albuterol sulfate 90 mcg/actuation 2 puff inhalation Q6H PRN 01/05/20 10/27/21 Unknown aerosol inhaler (Ventolin HFA) shortness of breath loperamide 2 mg capsule 2 mg PO Q6H PRN Diarrhea 01/05/20 10/27/21 Unknown blood-glucose meter #1 ea 06/09/20 10/27/21 Unknown lancets 30 gauge #100 ea 06/09/20 10/27/21 Unknown aripiprazole 10 mg tablet 10 mg PO QPM 08/31/20 10/27/2108/30/21 etodolac 300 mg capsule 300 mg PO BID 08/31/20 10/27/21 08/31/20 fluoxetine 40 mg capsule 30 mg PO QAM 09/17/20 10/27/21 Unknown gabapentin 400 mg capsule 400 mg PO TID #90 caps 09/17/20 10/27/21 Unknown lamotrigine 25 mg tablet 50 mg PO HS 10/27/20 10/27/21 Unknown pen needle, diabetic 31 gauge x #100 ea 04/01/21 10/27/21 Unknown 5/16" (BD Ultra-Fine Short Pen Needle) zolmitriptan 5 mg tablet (Zomig) 5 mg PO .COMPLEX PRN migraine 04/04/21 10/27/21 Unknown headache #9 tabs blood sugar diagnostic (Blood #100 ea 06/03/21 10/27/21 Unknown Glucose Test strips) albuterol sulfate 2.5 mg/3 mL 2.5 mg (3 mL) inhalation QID PRN 06/08/21 10/27/21 Unknown (0.083 %) solution for nebulization shortness of breath or wheezing #180 mL compressor, for nebulizer #1 ea 06/08/21 10/27/21 Unknown nebulizer accessories #1 ea 06/08/21 10/27/21 Unknown pantoprazole 40 mg tablet,delayed See Rx Instructions .Route 07/22/21 10/27/21 Unknown release .COMPLEX #60 tabs eptinezumab-jjmr 100 mg/mL 100 mg IV .COMPLEX #1 mL 08/04/21 10/27/21 Unknown intravenous solution (Vyepti) dulaglutide 4.5 mg/0.5 mL 4.5 mg (0.5 mL) subcut .weekly #2 10/03/21 10/27/21 Unknown subcutaneous pen injector mL (Trulicity) insulin lispro protamine-lispro 40 unit (0.4 mL) subcut BID #15 mL 10/10/21 10/27/21 Unknown 100 unit/mL (75-25) subcutaneous pen pull up - adult large See Rx Instructions .Route 10/10/21 10/27/21 Unknown .COMPLEX #180 units metformin 1,000 mg tablet 1,000 mg PO BID #60 tabs 10/18/21 10/27/21 Unknown clonidine HCl 0.1 mg tablet 0.1 mg PO HS 10/27/21 10/27/21 Unknown fluoxetine 20 mg capsule 40 mg PO HS 10/27/21 10/27/21 Unknown fluticasone furoate 100 2 inh inhalation QAM 10/27/21 10/27/21 Unknown mcg-vilanterol 25 mcg/dose inhalation powder (Breo Ellipta) lisinopril 5 mg tablet 5 mg PO QAM 10/27/21 10/27/21 Unknown Past Medical History Medical History Bipolar disorder Degenerative disc disease Diabetes mellitus IDDM Diverticular disease Hiatal hernia History of bronchitis Reason for inhaler PRN History of COVID-19 01/2020 - headache, fever, chills > resolved IBS (irritable bowel syndrome) Migraine Morbid obesity Neck Pain Post traumatic stress disorder Pulmonary embolism 2010 (r/t Picc line, treated with AC)- no issues since Sleep apnea No device Thrombocytopenia [place] to be idiopathic thrombocytopenia and could also be aggravated by her obesity per 2019 heme records, platelets stable in the low 100s Exercise / Class Metabolic Activity III < 4 Walking/Shop/Light housework (one FS (no CP, + SOB)) Past Family History Family History Father Family history of diabetes mellitus Hypertension Kidney stones Grandmother (Paternal) Family hx of colon cancer Brother Alcohol abuse Anxiety Bipolar disorder Depression Drug abuse Kidney stones Mother Anxiety Depression Breast cancer Cancer Migraine headache Sister Anxiety Migraine headache Blood dyscrasia Grandmother Colon cancer Grandfather Prostate cancer Cancer Grandmother Cancer Grandfather Cancer Past Surgical History Surgical History H/O elbow surgery RIGHT H/O exploratory laparotomy DEBRIDEMENT-ABDOMINAL ABSCESS S/P R OOPHORECTOMY prior to 2003 H/O oophorectomy RIGHT H/O: hysterectomy 2004 - By Dr. David Sr History of arthroscopy RIGHT KNEE X 2 History of bilateral tubal ligation History of carpal tunnel release R/L X 2 EACH History of section X 3 History of cholecystectomy History of colonoscopy History of endometrial ablation History of esophagogastroduodenoscopy (EGD) S/P cataract surgery Past Anesthesia History No Hx of Anesthesia Complications and No Family Hx of Anesthesia Complications History of PONV No Hx of PONV and No Hx of Motion Sickness Social History Smoking Status: Former smoker tobacco type: cigarettes Do You Dip or Chew Tobacco: No Smoking End Date: Quit 30 years ago Hx Alcohol Use: Yes Alcohol type: wine alcohol intake frequency: holidays/special occasions only Hx Substance Use: No substance use type: does not use Review of Systems Patient denies chest pain, shortness of breath, fever, chills, cough, wheezing, palpitations. Physical Exam Vital Signs VITALS BP 106/72 P 81 TEMP 98.2 SP02 96%RA RESP 16 PHYSICAL Full cervical extension range of motion. Full TMJ range of motion. TMD 3.5 finger breaths Mallampati Score 3 Dentition: intact Lungs: clear throughout to auscultation Cardiac: regular rate and rhythm, no murmurs noted Spine: normal Carotid arteries: negative bruit Extremities: no edema Lab Results Anesthesia Preop Results Results Anesthesia Widget: WBC 5.25 K/ul (4.8-10.8) 11/03/21 Hgb 11.9 g/dl (12.0-16.0) L 11/03/21 Hct 36.0 % (34.1-44.9) 11/03/21 Plt 121 K/uL (130-400) L 11/03/21 Na 139 mmol/L (136-145) 11/03/21 K 4.4 mmol/L (3.5-5.1) 11/03/21 Cl 104 mmol/L (98-107) 11/03/21 CO2 29 mmol/L (21-32) 11/03/21 BUN 18 mg/dl (6-23) 11/03/21 Creat 0.77 mg/dl (0.6-1.2) 11/03/21 Glucose Level 138 mg/dl (70-99(Fasting)) H 11/03/21 PT 10.9 Seconds (9.0-12.0) 11/03/21 PTT 26.3 Seconds (21.0-31.0) 11/03/21 INR 1.0 (0.9-1.1) 11/03/21 HA1c 6.8 % (4.5-5.6) H 11/03/21 Urine Color Dark Yellow 11/03/21 Urine Appearance Clear (Clear) 11/03/21 Urine pH 5.5 (4.5-7.5) 11/03/21 Urine Specific [place] 1.037 (1.000-1.030) H 11/03/21 Urine Protein Trace (Negative) H 11/03/21 Urine Glucose (UA) Negative (Negative) 11/03/21 Urine Ketones Trace (Negative) H 11/03/21 Urine Blood Negative (Negative) 11/03/21 Urine Nitrite Negative (Negative) 11/03/21 Urine Bilirubin Negative (Negative) 11/03/21 Urine Urobilinogen Negative (Negative) 11/03/21 Urine Leukocyte Esterase Trace (Negative) H 11/03/21 Urine WBC (Auto) 1-5 /hpf (0-5) 11/03/21 Urine RBC (Auto) 0-4 /hpf (0-4) 11/03/21 Urine Hyaline Casts (Auto) 1-5 /lpf (0-5) 11/03/21 Urine Epithelial Cells (Auto) >30 /lpf (0-5) H 11/03/21 Urine Bacteria (Auto) Negative (Negative) 11/03/21 Blood Type B Negative 11/03/21 Antibody Screen NEGATIVE 11/03/21 Testing Electrocardiogram Date: 10/05/21 ST at 106bpm. Otherwise normal ECG. No significant change compared to 01/22/21 per automobile mechanic assistant review. Pulse 81 at [facility] visit 11/03/21* Chest X-Ray Date: 11/03/21 Findings: + NAD Stress Test Date: 04/29/19 Type: nuclear Negative myocardial perfusion study for significant ischemic changes. Fixed anterior defect likely related to breast attenuation artifact. Normal wall motion. Normal left ventricular systolic function. EF 62%. Nondiagnostic Lexiscan ECG. COVID-19 Risk Screen Screening Information COVID-19 Screen Date: 11/03/21 Exposure 21 Days Family/Household +COVID Last 21 Days: No Exposure 10 Days Any COVID Exposure Last 10 Days: No Symptoms Last 10 Days Experienced COVID Sx Last 10 Days: No + COVID 0-90 Days COVID + in Last 0-90 Days: No
--- NOTE | 2021-12-07 07:20 | History & Physical Report ---
Date of Service December 07, 2021 Assessment & Plan (1) Osteoarthritis of right knee: Plan: Treatment options discussed with patient. She has failed conservative measures and would like to proceed with surgical intervention. Risks, benefits and alternatives to surgery including but not limited to infection, DVT, pain, stiffness, need for revision surgery, damage to blood vessels, damage to nerves, PE, , were discussed with the patient and they wish to proceed. Plan for right total knee arthroplasty scheduled for December 08 at [facility] with Dr. Chirinos. We will plan on Xarelto postop for DVT prophylaxis. We will plan on outpatient PT. All questions answered. Patient will follow-up postop. History of Present Illness Chief Complaint: Right knee pain Primary Care Provider: Sandra Babcock DO 51-year-old female with past medical history significant for diabetes, PE, sleep apnea, bipolar who presents with ongoing right knee pain. She has failed conservative measures including rest, cortisone injections, bracing, therapy. Pain is interfering with her daily activities. She would like to proceed with surgical intervention. Patient denies headaches, sweats, fevers, chills, double vision, blurred vision, cough, sore throat, dysphagia, chest pain, sob, wheezing, n/v/d/c, numbness, tingling, fatigue, urinary symptoms, mood disorders. ROS positive for Right knee pain and stiffness. Allergies Allergy/AdvReac Type Severity Reaction Status Date / Time moxifloxacin [From Avelox] Allergy Severe Anaphylaxis Verified 11/18/21 12:58 aspirin Allergy Unknown BREATHING Verified 11/18/21 12:58 ISSUES desvenlafaxine Allergy Unknown rash Verified 11/18/21 12:58 latex Allergy Unknown RASH, Verified 11/18/21 12:58 HIVES,SOB levofloxacin Allergy Unknown VERTIGO Verified 11/18/21 12:58 loratadine Allergy Unknown RASH Verified 11/18/21 12:58 zafirlukast Allergy Unknown GI UPSET Verified 11/18/21 12:58 divalproex sodium AdvReac Unknown SWELLING/WEIGHT Verified 11/18/21 12:58 [From Depakote] GAIN Home Medications Medication Instructions Recorded Confirmed Type bupropion HCl 100 mg tablet 100 mg PO BID 04/09/19 11/18/21 History albuterol sulfate 90 mcg/actuation 2 puff inhalation Q6H PRN 01/05/20 11/18/21 History aerosol inhaler (Ventolin HFA) shortness of breath loperamide 2 mg capsule 2 mg PO Q6H PRN Diarrhea 01/05/20 11/18/21 History blood-glucose meter #1 ea 06/09/20 11/18/21 Rx lancets 30 gauge #100 ea 06/09/20 11/18/21 Rx aripiprazole 10 mg tablet 10 mg PO QPM 08/31/20 11/18/21 History etodolac 300 mg capsule 300 mg PO BID 08/31/20 11/18/21 History fluoxetine 40 mg capsule 30 mg PO QAM 09/17/20 11/18/21 History gabapentin 400 mg capsule 400 mg PO TID #90 caps 09/17/20 11/18/21 Rx lamotrigine 25 mg tablet 50 mg PO HS 10/27/20 11/18/21 History pen needle, diabetic 31 gauge x #100 ea 04/01/21 11/18/21 Rx 5/16" (BD Ultra-Fine Short Pen Needle) zolmitriptan 5 mg tablet (Zomig) 5 mg PO .COMPLEX PRN migraine 04/04/21 11/18/21 Rx headache #9 tabs albuterol sulfate 2.5 mg/3 mL 2.5 mg (3 mL) inhalation QID PRN 06/08/21 11/18/21 Rx (0.083 %) solution for nebulization shortness of breath or wheezing #180 mL compressor, for nebulizer #1 ea 06/08/21 11/18/21 Rx nebulizer accessories #1 ea 06/08/21 11/18/21 Rx eptinezumab-jjmr 100 mg/mL 100 mg IV .COMPLEX #1 mL 08/04/21 11/18/21 Rx intravenous solution (Vyepti) dulaglutide 4.5 mg/0.5 mL 4.5 mg (0.5 mL) subcut .weekly #2 10/03/21 11/18/21 Rx subcutaneous pen injector mL (Trulicity) insulin lispro protamine-lispro 40 unit (0.4 mL) subcut BID #15 mL 10/10/21 11/18/21 Rx 100 unit/mL (75-25) subcutaneous pen pull up - adult large See Rx Instructions .Route 10/10/21 11/18/21 Rx .COMPLEX #180 units metformin 1,000 mg tablet 1,000 mg PO BID #60 tabs 10/18/21 11/18/21 Rx clonidine HCl 0.1 mg tablet 0.1 mg PO HS 10/27/21 11/18/21 History fluoxetine 20 mg capsule 40 mg PO HS 10/27/21 11/18/21 History fluticasone furoate 100 2 inh inhalation QAM 10/27/21 11/18/21 History mcg-vilanterol 25 mcg/dose inhalation powder (Breo Ellipta) lisinopril 5 mg tablet 5 mg PO QAM 10/27/21 11/18/21 History blood sugar diagnostic (Blood #100 ea 11/04/21 11/18/21 Rx Glucose Test strips) pantoprazole 40 mg tablet,delayed See Rx Instructions .Route 11/15/21 11/18/21 Rx release .COMPLEX #120 tabs Past Med/Surg History Medical History Bipolar disorder Degenerative disc disease Diabetes mellitus Diverticular disease Hiatal hernia History of bronchitis History of COVID-19 IBS (irritable bowel syndrome) Migraine Morbid obesity Neck Pain Post traumatic stress disorder Pulmonary embolism Sleep apnea Thrombocytopenia Surgical History H/O elbow surgery H/O exploratory laparotomy H/O oophorectomy H/O: hysterectomy History of arthroscopy History of bilateral tubal ligation History of carpal tunnel release History of section History of cholecystectomy History of colonoscopy History of endometrial ablation History of esophagogastroduodenoscopy (EGD) S/P cataract surgery Family History Father Family history of diabetes mellitus Hypertension Kidney stones Grandmother (Paternal) Family hx of colon cancer Brother Alcohol abuse Anxiety Bipolar disorder Depression Drug abuse Kidney stones Mother Anxiety Depression Breast cancer Cancer Migraine headache Sister Anxiety Migraine headache Blood dyscrasia Grandmother Colon cancer Grandfather Prostate cancer Cancer Grandmother Cancer Grandfather Cancer Social History Smoking Status: Former smoker Age Started Using Tobacco: 16; Age Quit Using Tobacco: 24; Smoking End Date: Quit 30 years ago; Second Hand Exposure: No; Do You Dip or Chew Tobacco: No; Tobacco Cessation Education Requested by Patient: No Hx Alcohol Use: Yes Alcohol type: wine Hx Substance Use: No Preferred Language: German Communication Ability: Effective Visual Impairment: No Limitations Hearing Ability: Normal Novelty Chain Maker Required: No Beliefs That Will Affect Care: None marital status: Current Living Situation: Significant Other Current Living Situation Comment: Daughter, Sister and 3 grandchildren current occupational status: unemployed Other Information That Helps Us Care for You: No Feels Safe at Home: Yes Safety Concerns: Feels Safe At This Time Childhood Exposure to Second-Hand Smoke: Yes Dental Care, Regularly: No Physical Activity Frequency: Does not Exercise Seatbelt Use: always Sunscreen Use: No Assistive Devices: Brace/Splint/Immobilizer and Glasses Review of Systems All systems reviewed & are unremarkable except as noted in HPI & below Physical Exam Constitutional: well developed and well nourished; no acute distress Eyes: PERRL, conjunctivae normal, anicteric sclerae ENMT: external ear and nose normal, oropharynx normal Neck: trachea midline, no thyromegaly Respiratory: normal respiratory effort, lungs clear to auscultation Cardiovascular: RRR, no murmur, no edema Musculoskeletal: Right knee:Varus alignment. Mild effusion. Medial joint line tenderness. She has active painful range of motion 10 to 115 degrees. Stable to valgus and varus stress test. Skin: no rashes, warm and dry Neurologic: patellar DTR's 2+ bilat, sensation intact Psychiatric: A+Ox3, euthymic affect Results & Data ([facility]) Diagnostic Findings Right knee radiographs demonstrate Tricompartmental degenerative changes. Patient has [id number] medial compartment on flexion view. There is periarticular osteophyte formation.
[~2021-12-08 06:04] MED LIST changes: +ACETAMINOPHEN 500 MG TAB PO SCH; +ALLERGY Noted to ORDERED Medication SCH; -CHOL1000 PO; -CYAN10005 PO; +CeleBREX 200 MG CAP PO SCH; +FAMOTIDINE 20 MG TAB PO SCH; -FLUO20CA35 PO; +GABAPENTIN 900 MG DOSE PO SCH; +LR 500ML BOLUS, THEN 15ML/HR IV SCH; +METOCLOPRAMIDE HCL 10 MG TABLET PO SCH; -PANT40TA PO; -POLY335019 PO; -PROP1TAB PO; -RIZA10TA18 PO; +ROPIVACAINE 0.5% HCL/PF 150 MG, BUPIVACAINE 0.75% MPF 20 ML, EPINEPHrine 0.15 MG, dexAM... INFIL SCH; -TOPI25TA99 PO; -TOPI50TA16 PO; +TRANEXAMIC ACID 1,000 MG **IV Intra-op IV SCH; +TRANEXAMIC ACID 1,000 MG **IV Pre-op IV SCH; +ceFAZolin 2000MG 2,000 MG/15 ML SYR IV SCH
[2021-12-08] MEDS ORDERED: EPINEPHrine INJ 1 MG/ML AMP ONE (06:27)
[2021-12-08] MEDS ORDERED: ROPIVACAINE 0.5% 5 MG/ML 30 ML VIAL ONE (06:28)
[2021-12-08] MEDS ORDERED: BUPIVACAINE 0.5 % 5 MG/1 ML PF 10ML VIAL ONE (06:28)
[2021-12-08] MEDS ORDERED: ACETAMINOPHEN 1000 MG/100 ML IV IV ONE (07:39)
[2021-12-08] MEDS ORDERED: DexMEDEtomidine HCL IV 100 MCG/ML VIAL IV ONE (07:40)
[2021-12-08] MEDS ORDERED: PROPOFOL IV EMULSION 10 MG/ML 100 ML VIAL IV ONE ×2 (07:41→08:13)
[2021-12-08] MEDS ORDERED: INSULIN ASPART PER UNIT SC STA (07:43)
[2021-12-08] MEDS ORDERED: MIDAZOLAM HCL 1 MG/ML 2ML VIAL ONE (07:45)
[2021-12-08] MEDS ORDERED: INSULIN ASPART PER UNIT ONE (07:45)
[2021-12-08] MEDS ORDERED: fentaNYL citrate 100 MCG/2 ML VIAL ONE (07:45)
[2021-12-08] MEDS ORDERED: ATROPINE SULFATE 0.1 MG/ML 10ML SYR IV PRN (07:51)
[2021-12-08] MEDS ORDERED: ePHEDrine sulfate 50 MG/ML AMP IV PRN (07:51)
[2021-12-08] MEDS ORDERED: ONDANSETRON INJ 2 MG/ML 2 ML VIAL IV PRN (07:51)
[2021-12-08] MEDS ORDERED: fentaNYL citrate 100 MCG/2 ML VIAL IV PRN (07:51)
[2021-12-08] MEDS ORDERED: ORTHO JOINT ANESTHETIC ONE (08:18)
--- NOTE | 2021-12-08 08:25 | History & Physical Bridge Note ---
Date of Service December 08, 2021 History & Physical Bridge Note I have examined the patient, reviewed the History & Physical and in the interval since the performance of the History & Physical I have noted the following changes of clinical significance: no changes noted
[2021-12-08] MEDS ORDERED: PROPOFOL IV EMULSION 10 MG/ML 20 ML VIAL IV ONE (10:30)
[2021-12-08] MEDS ORDERED: ONDANSETRON INJ 2 MG/ML 2 ML VIAL ONE (10:58)
--- NOTE | 2021-12-08 11:14 | Post Operative Brief Note ---
Immediate Post Op Note v1 Date of Surgery December 08, 2021 Pre & Post Diagnosis Operation Date: 12/08/21 08:15 Pre-Op Diagnosis: Osteoarthritis of right knee Post-Op Diagnosis: Osteoarthritis of right knee I identified the patient and participated in the time-out.: Yes Procedure Operation Date: 12/08/21 08:15 Actual Procedures p Right Total Knee Arthroplasty(Right) - Von Chirinos MD Surgeon Von Chirinos MD Generalist Real SCOTT Estimated Blood Loss 5 Findings Consistent with Post-Op Diagnosis Specimens Bone cuts Drains Hemovac Drain (10 [place] dual lumen Hemovac drain inserted by Dr. Chirinos during procedure ) Anesthesia Type General Regional Complications none Disposition Disposition: Recovery Room Overlapping Procedure I was immediately available: during the entire case.
--- NOTE | 2021-12-08 11:22 | Operative Report ---
Post Operative Report Pre & Post Diagnosis Operation Date: 12/08/21 08:15 Pre-Op Diagnosis: Osteoarthritis of right knee, morbid obesity BMI 42.6 Post-Op Diagnosis: Osteoarthritis of right knee, morbid obesity BMI 42.6 I identified the patient and participated in the time-out.: Yes Procedure Operation Date: 12/08/21 08:15 Actual Procedures p Right Total Knee Arthroplasty(Right), lateral release, apical superficial wound VAC, increased difficulty obesity BMI 42.6- Von Chirinos MD Surgeon Von Chirinos MD Employment Security Officer Real SCOTT Estimated Blood Loss 5 Findings Consistent with Post-Op Diagnosis Specimens Bone cuts Drains 2 Hemovac Anesthesia Type MAC Spinal Regional Complications none Disposition Disposition: Recovery Room Indications 51-year-old female with chronic progressive osteoarthritis in her knee. Radiographs demonstrate tricompartmental osteoarthritis. She is knee compartment and patellofemoral OA primarily. History previous arthroscopy of the knee. She has had multiple injections and extensive conservative management. Description of Procedure Patient was taken to the operating room placed supine on the operating table and anesthetized under spinal MAC regional block anesthesia. Exam under anesthesia demonstrated 10 degree flexion contracture flexion 120 degrees no instability small moderate effusion and obese leg. A pneumatic tourniquet was placed about the thigh of the right lower extremity. The right lower extremity was prepped and draped in usual sterile fashion. The leg was elevated exsanguinated with an Esmarch bandage and the pneumatic tourniquet was raised to 350 mm mercury. An anterior incision was made across the right knee. The skin was incised longitudinally through a fairly deep layer of fat and the subcutaneous flaps were elevated and an incision was made through the medial retinaculum extending up into the mid third of the quadriceps tendon and extended down to the medial tibial tubercle. Intra-articular findings demonstrated tricompartmental osteoarthritis grade 4 articular damage to the lateral femoral condyle grade 4 eburnated bone in the medial compartment medial femoral condyle and tibia grade 4 changes on the patella tricompartment osteophytes loose bodies and synovitis. Scar tissue from old arthroscopy and some scar tissue the infrapatellar fat pad. The knee was exposed by excising the scarred infrapatellar fat pad, excising the meniscal remnants and anterior cruciate ligament. All loose bodies were resected. Any inflamed synovial tissue was resected. The fat pad over the anterior femur was resected for placement of the component in that area. The lateral synovial bands were release. The femur was exposed. The custom femoral cutting block was pinned in position. The distal femoral cutting block was applied. The distal femoral cut was made with the oscillating saw. The size 8 4-in-1 cutting block was placed. The anterior and posterior chamfer cuts were made. The knee was extended and a subperiosteal peel lateral release was performed around the patella. The patella width was measured and width was reproduced using freehand cut technique. The 29 millimeter symmetrical patella was used. 3 drill holes are made for the pegs. The tibia was exposed. A custom tibial cutting block was positioned and drill holes were made for the cutting guide. Cutting guide was placed and the proximal cut was made with the oscillating saw. All osteophytes were resected. The lamina business technology analyst was used to assess ligamentous balance and the ligaments were balanced in extension and flexion. The tibia was reexposed and measured for a size D tibial component. This was externally rotated in line with the tibial tubercle and the fixation pins were drilled. The proximal tibia was fashioned with the drill and punch. The size 8 CR femoral trial was inserted. The trial MC inserts were used. The 10 mm insert gave balanced ligaments through full range of motion. The patella tracked with some slight lateral tracking so a lateral lease was performed proximally leaving the synovium intact and this corrected the patella to central tracking. the trials were removed. The orthomix anesthetic cocktail was injected per protocol. The knee was then copiously irrigated with pulsatile lavage saline solution. The final components were cemented with Refobacin bone cement. The final components were a narrow CR right persona femoral component, D right tibial component, 10 right MC polyethylene tibial insert and a 29 symmetrical patella. After the cement cured with the knee in full extension the Betadine soak was used per protocol. The knee joint was copiously irrigated with pulsatile lavage saline solution . 2 drains were brought out laterally and connected to a Hemovac. The quadriceps tendon and medial retinaculum were closed with interrupted [id number] #1 Vicryl sutures. The knee was taken through a full range of motion and repair was secure. The subcutaneous tissues were closed with 2-0 Vicryl sutures and skin was closed with slade. Dennys and Acticoat superficial wound VAC was applied and the patient tolerated the procedure well. Real SCOTT my physician sales assistant entertainment and media participated as multimedia production assistant and was integral part in all aspects of the procedure. He assisted in soft tissue retraction, instrument management ,leg positioning, the closure including application superficial wound VAC and will participate in the postoperative care of the patient. I attest to the content of the Intraoperative Record and any orders documented therein. Any exceptions are noted below.
--- NOTE | 2021-12-08 11:42 | XRay Report ---
XR knee RT 1 or 2V routine HISTORY: 51 years-old Female Surgical Post Op right knee total joint arthroplasty COMPARISON: None TECHNIQUE: 2 views of the right knee FINDINGS: Total joint arthroplasty with patellar resurfacing. Anterior midline skin slade are noted along wit h expected postoperative soft tissue swelling with deep tissue air. Surgical drainage catheter is in place. No acute fracture or unexpected opaque foreign body. IMPRESSION: Total joint arthroplasty with expected postoperative changes. ACT 112: Negative or not required by law. The above report was generated using voice recognition software. It may contain grammatical, syntax o r spelling errors. Electronically signed by: Gordon Ferreiar M.D. 12/08/2021 11:41 AM
--- NOTE | 2021-12-08 12:26 | Anesthesiology Progress Note ---
Date of Service December 08, 2021 Anesthesia Post Procedure Vital Signs Vital Signs: Temp Pulse Pulse Resp BP Pulse Ox O2 Del Method 12/08/21 12:15 67 15 107/65 94 Room Air 12/08/21 12:05 65 16 110/66 94 Room Air 12/08/21 11:55 75 19 109/67 94 Room Air 12/08/21 11:45 36.4 C L 59 L 18 105/67 94 Room Air 12/08/21 11:35 66 19 107/66 96 Room Air 12/08/21 11:25 61 14 100/63 96 Oxymask 12/08/21 11:15 72 18 105/60 98 Oxymask 12/08/21 11:09 36.9 C 78 20 113/62 99 Oxymask 12/08/21 06:43 37.0 C 83 20 156/96 H 96 Room Air O2 Flow Rate 12/08/21 12:15 12/08/21 12:05 12/08/21 11:55 12/08/21 11:45 12/08/21 11:35 12/08/21 11:25 4 12/08/21 11:15 6 12/08/21 11:09 6 12/08/21 06:43 Pain Intensity Right Knee: Pain Intensity: 0 Transfer of Care Handoff Completed per policy Notes Mental Status: alert / awake / arousable and participated in evaluation Patient Amnestic to Procedure: Yes Nausea / Vomiting: adequately controlled Pain: adequately controlled Airway Patency, RR, SpO2: stable & adequate BP & HR: stable & adequate Hydration State: stable & adequate Neuraxial Anesthesia: was administered and sensory block is resolving Anesthetic Complications: no major complications apparent
[2021-12-08] MEDS ORDERED: NALOXONE HCL 0.4 MG/1 ML VIAL/CARP IV PRN (12:38)
[2021-12-08] MEDS ORDERED: METOCLOPRAMIDE HCL INJ 5 MG/ML 2 ML VIAL IV PRN (12:38)
[2021-12-08] MEDS ORDERED: ALBUTEROL HFA 8 GM INHALER INH PRN (12:38)
[2021-12-08] MEDS ORDERED: LOPERAMIDE HCL 2 MG CAP PO PRN (12:38)
[2021-12-08] MEDS ORDERED: MAGNESIUM HYDROXIDE SUSP 30 ML UDC PO PRN (12:38)
[2021-12-08] MEDS ORDERED: ALBUTEROL 0.083% NEBU SOLN 3 ML VIAL INH PRN (12:38)
[2021-12-08] MEDS ORDERED: bisacodyL 10 MG SUPP PR PRN (12:38)
[2021-12-08] MEDS: SODIUM CHLORIDE 0.9% 1000ML 1,000 ML IV SCH (13:52)
[2021-12-08] MEDS: ACETAMINOPHEN 500 MG TAB PO SCH ×2 (14:27→21:46)
[2021-12-08] MEDS: oxyCODONE HCL IR 5 MG TAB (IMMEDIATE RELEASE) PO PRN ×2 (14:27→19:28)
[2021-12-08] MEDS: GABAPENTIN 400 MG CAP PO SCH ×2 (14:28→21:34)
[2021-12-08] MEDS: HYDROmorphone INJ 0.5 MG/0.5 ML SYR IV PRN ×2 (15:47→21:34)
[2021-12-08] MEDS: PANTOprazole 40 MG TAB PO SCH (16:30)
[2021-12-08] MEDS ORDERED: PHARMACY GLYCEMIC MGMT CONSULT PRN (16:55)
[2021-12-08] MEDS ORDERED: GLUCOSE 40% GEL 15 GM TUBE PO PRN (17:30)
[2021-12-08] MEDS ORDERED: GLUCAGON FOR INJ 1 MG VIAL IM PRN (17:30)
[2021-12-08] MEDS ORDERED: DEXTROSE 50% 50 ML SYRINGE IV PRN (17:30)
[2021-12-08] MEDS ORDERED: GLUCOSE 10 TAB/TUBE PO PRN (17:30)
[2021-12-08] MEDS ORDERED: CARBOHYDRATES FOR HYPOGLYCEMIA PO PRN (17:30)
[2021-12-08] MEDS ORDERED: LANTUS PER UNIT CHARGE SQ ONE ×2 (17:45→21:30)
[2021-12-08] MEDS: ceFAZolin 2000MG 2,000 MG/15 ML SYR IV SCH (17:53)
[2021-12-08] MEDS: INSULIN ASPART PER UNIT SC SCH ×2 (18:02→21:45)
--- NOTE | 2021-12-08 20:30 | Pharmacy Report ---
Pharmacy Glycemic Short Note 2 - Date of Service December 08, 2021 - Glycemic Short BSG Results (Last 24 hours): 12/08/21 12/08/21 12/08/21 06:33 06:35 08:47 POC Glucose 325 H* 329 H* 260 H 12/08/21 12/08/21 12/08/21 09:59 11:12 13:06 POC Glucose 238 H 194 H 211 H 12/08/21 12/08/21 17:25 17:26 POC Glucose 343 H* 390 H* OUTPATIENT ANTIDIABETIC REGIMEN: * Trulicity, metformin, Lispro mix - 40 units bid * A1c 6.8% ASSESSMENT: * 51 year old female, POD 0 right TKA - pharmacy consulted for glycemic management as blood sugars elevated postop. Received 16 units of short acting insulin this morning for elevated AM blood sugar. Blood sugars this evening elevated in the 300s - patient had been ordered diet for lunch but was not covered with insulin. Received glycemic consult this evening, entered in stat Lantus order and also novolog ACHS. Patient last took her home insulin yesterday evening. * Will add overnight checks to ensure BSGs trending downward. PLAN FOR INPATIENT GLYCEMIC CONTROL: * Hold outpatient oral diabetes medications * Basal insulin * Lantus 40 units x 1 * Lantus 20 units bid starting tomorrow * Bolus insulin * NovoLog per scale ACHS or Q6hrs while NPO * Goal Range: Low 110 mg/dL - High 140 mg/dL * Correction Factor: 15 mg/dL/unit * Nutritional / Prandial insulin per carb ratio of 1 unit per 5 grams CHO consumed
[2021-12-08] MEDS: SENNA 8.6 MG TAB PO SCH (21:31)
[2021-12-08] MEDS: DOCUSATE SODIUM 100 MG CAP PO SCH (21:32)
[2021-12-08] MEDS: ARIPiprazole 10 MG TAB PO SCH (21:34)
[2021-12-08] MEDS: lamoTRIgine 25 MG TAB PO SCH (21:34)
[2021-12-08] MEDS: buPROPion HCl 100 MG TABLET PO SCH (21:34)
[2021-12-08] MEDS: FLUoxetine HCL 20 MG CAP PO SCH (21:34)
[2021-12-08] MEDS: cloNIDine HCL 0.1 MG TAB PO SCH (21:34)
[2021-12-09] MEDS: SODIUM CHLORIDE 0.9% 1000ML 1,000 ML IV SCH (00:10)
[2021-12-09] MEDS: INSULIN ASPART PER UNIT SC SCH ×6 (00:11→20:52)
[2021-12-09] MEDS: ceFAZolin 2000MG 2,000 MG/15 ML SYR IV SCH (00:15)
[2021-12-09] MEDS: oxyCODONE HCL IR 5 MG TAB (IMMEDIATE RELEASE) PO PRN ×5 (00:21→20:58)
[2021-12-09] MEDS: ACETAMINOPHEN 500 MG TAB PO SCH ×3 (06:00→20:58)
--- NOTE | 2021-12-09 06:06 | Hospitalist Consultation ---
Date of Consultation December 08, 2021 Assessment & Plan (1) Osteoarthritis of right knee: Postop day #0 right total knee arthroplasty will montor blood work. pain management and dvt prophylaxis as per primary servive. (2) Anemia: low at 11.4 will monitor for now. (3) Anxiety: resume home meds (4) Depression: resume home meds (5) GERD (gastroesophageal reflux disease): stable,resume home meds (6) Diabetes mellitus: due to elevated blood sugar, will consult glycemic control will follow along for another 24 hours. If remains stable will sign off. Thank you for allowing us to participate in your patient's care. History of Present Illness Reason for Consultation: medical management Attending Physician: Von Chirinos MD History of Present Illness 51 yo female with PMH described below is admitted for Osteoarthritis of right knee, morbid obesity BMI 42.6; currently s/p Right Total Knee Arthroplasty(Right), lateral release, apical superficial wound VAC. Patient currently has no new complaints. Allergies Allergy/AdvReac Type Severity Reaction Status Date / Time moxifloxacin [From Avelox] Allergy Severe Anaphylaxis Verified 11/18/21 12:58 aspirin Allergy Unknown BREATHING Verified 11/18/21 12:58 ISSUES desvenlafaxine Allergy Unknown rash Verified 11/18/21 12:58 latex Allergy Unknown RASH, Verified 11/18/21 12:58 HIVES,SOB levofloxacin Allergy Unknown VERTIGO Verified 11/18/21 12:58 loratadine Allergy Unknown RASH Verified 11/18/21 12:58 zafirlukast Allergy Unknown GI UPSET Verified 11/18/21 12:58 divalproex sodium AdvReac Unknown SWELLING/WEIGHT Verified 11/18/21 12:58 [From Depakote] GAIN Home Medications Medication Instructions Recorded Confirmed Type bupropion HCl 100 mg tablet 100 mg PO BID 04/09/19 12/08/21 History albuterol sulfate 90 mcg/actuation 2 puff inhalation Q6H PRN 01/05/20 12/08/21 History aerosol inhaler (Ventolin HFA) shortness of breath loperamide 2 mg capsule 2 mg PO Q6H PRN Diarrhea 01/05/20 12/08/21 History blood-glucose meter #1 ea 06/09/20 11/18/21 Rx lancets 30 gauge #100 ea 06/09/20 11/18/21 Rx aripiprazole 10 mg tablet 10 mg PO QPM 08/31/20 12/08/21 History etodolac 300 mg capsule 300 mg PO BID 08/31/20 12/08/21 History fluoxetine 40 mg capsule 30 mg PO QAM 09/17/20 12/08/21 History gabapentin 400 mg capsule 400 mg PO TID #90 caps 09/17/20 12/08/21 Rx lamotrigine 25 mg tablet 50 mg PO HS 10/27/20 12/08/21 History pen needle, diabetic 31 gauge x #100 ea 04/01/21 11/18/21 Rx 5/" (BD Ultra-Fine Short Pen Needle) zolmitriptan 5 mg tablet (Zomig) 5 mg PO .COMPLEX PRN migraine 04/04/21 12/08/21 Rx headache #9 tabs albuterol sulfate 2.5 mg/3 mL 2.5 mg (3 mL) inhalation QID PRN 06/08/21 12/08/21 Rx (0.083 %) solution for nebulization shortness of breath or wheezing #180 mL compressor, for nebulizer #1 ea 06/08/21 11/18/21 Rx nebulizer accessories #1 ea 06/08/21 11/18/21 Rx eptinezumab-jjmr 100 mg/mL 100 mg IV .COMPLEX #1 mL 08/04/21 12/08/21 Rx intravenous solution (Vyepti) dulaglutide 4.5 mg/0.5 mL 4.5 mg (0.5 mL) subcut .weekly #2 10/03/21 12/08/21 Rx subcutaneous pen injector mL (Trulicity) insulin lispro protamine-lispro 40 unit (0.4 mL) subcut BID #15 mL 10/10/21 12/08/21 Rx 100 unit/mL (75-25) subcutaneous pen pull up - adult large See Rx Instructions .Route 10/10/21 12/08/21 Rx .COMPLEX #180 units metformin 1,000 mg tablet 1,000 mg PO BID #60 tabs 10/18/21 12/08/21 Rx clonidine HCl 0.1 mg tablet 0.1 mg PO HS 10/27/21 12/08/21 History fluoxetine 20 mg capsule 40 mg PO HS 10/27/21 12/08/21 History fluticasone furoate 100 2 inh inhalation QAM 10/27/21 12/08/21 History mcg-vilanterol 25 mcg/dose inhalation powder (Breo Ellipta) lisinopril 5 mg tablet 5 mg PO QAM 10/27/21 12/08/21 History blood sugar diagnostic (Blood #100 ea 11/04/21 11/18/21 Rx Glucose Test strips) pantoprazole 40 mg tablet,delayed See Rx Instructions .Route 11/15/21 12/08/21 Rx release .COMPLEX #120 tabs acetaminophen 500 mg tablet 1,000 mg PO Q8 #60 tabs 12/09/21 Rx (Tylenol Extra Strength) cefadroxil 500 mg capsule 500 mg PO BID #28 caps 12/09/21 Rx oxycodone 5 mg tablet 5 - 10 mg PO .Q4h-6h PRN pain #30 12/09/21 Rx tabs rivaroxaban 10 mg tablet (Xarelto) 10 mg PO DAILY #30 tabs 12/09/21 Rx Patient History Medical History Bipolar disorder Degenerative disc disease Diabetes mellitus IDDM Diverticular disease Hiatal hernia History of bronchitis Reason for inhaler PRN History of COVID-19 01/2020 - headache, fever, chills > resolved IBS (irritable bowel syndrome) Migraine Morbid obesity Neck Pain Post traumatic stress disorder Pulmonary embolism 2010 (r/t Picc line, treated with AC)- no issues since Sleep apnea No device Thrombocytopenia Dillwyn to be idiopathic thrombocytopenia and could also be aggravated by her obesity per 2019 heme records, platelets stable in the low 100s Surgical History H/O elbow surgery RIGHT H/O exploratory laparotomy DEBRIDEMENT-ABDOMINAL ABSCESS S/P R OOPHORECTOMY prior to 2003 H/O oophorectomy RIGHT H/O: hysterectomy 2004 - By Dr. David Sr History of arthroscopy RIGHT KNEE X 2 History of bilateral tubal ligation History of carpal tunnel release R/L X 2 EACH History of section X 3 History of cholecystectomy History of colonoscopy History of endometrial ablation History of esophagogastroduodenoscopy (EGD) S/P cataract surgery Family History Father Family history of diabetes mellitus Hypertension Kidney stones Grandmother (Paternal) Family hx of colon cancer Brother Alcohol abuse Anxiety Bipolar disorder Depression Drug abuse Kidney stones Mother Anxiety Depression Breast cancer Cancer Migraine headache Sister Anxiety Migraine headache Blood dyscrasia Grandmother Colon cancer Grandfather Prostate cancer Cancer Grandmother Cancer Grandfather Cancer Social History Smoking Status: Former smoker Age Started Using Tobacco: 16; Age Quit Using Tobacco: 24; Smoking End Date: Quit 30 years ago; Second Hand Exposure: No; Do You Dip or Chew Tobacco: No; Tobacco Cessation Education Requested by Patient: No Hx Alcohol Use: Yes Alcohol type: wine Hx Substance Use: No Preferred Language: Bulgarian Communication Ability: Effective Visual Impairment: No Limitations Hearing Ability: Normal Sap Portal Consultant Required: No Beliefs That Will Affect Care: None marital status: Current Living Situation: Significant Other Current Living Situation Comment: Daughter, Sister and 3 grandchildren current occupational status: unemployed Other Information That Helps Us Care for You: No Feels Safe at Home: Yes Safety Concerns: Feels Safe At This Time Childhood Exposure to Second-Hand Smoke: Yes Dental Care, Regularly: No Physical Activity Frequency: Does not Exercise Seatbelt Use: always Sunscreen Use: No Assistive Devices: Brace/Splint/Immobilizer and Glasses Review of Systems Constitutional: no fever Eyes: no blind spots Ear, Nose, Mouth, Throat: no ear pain Respiratory: no cough Cardiovascular: no chest pain Gastrointestinal: no abdominal pain Genitourinary: no dysuria Musculoskeletal: no back pain Integumentary: no acne Neurologic: no gait abnormality Psychiatric: no behavioral changes Endocrine: no fatigue Allergy / Immunological: no GI upset with certain foods Physical Exam Constitutional: WD/WN, vitals as above Eyes: PERRL, conjunctivae normal, anicteric sclerae ENMT: external ear and nose normal, oropharynx normal Neck: trachea midline, no thyromegaly Respiratory: normal respiratory effort, lungs clear to auscultation Cardiovascular: RRR, no murmur, no edema Gastrointestinal (Abdomen): normal bowel sounds, soft, nontender, no hepatosplenomegaly Musculoskeletal: no cyanosis or clubbing, extremities motor strength 5/5 (wound vac noted on right knee) Skin: no rashes, warm and dry Neurologic: PERRL, EOMI, accommodation nl, no face palsy, no dysarthria Psychiatric: A+Ox3, euthymic affect Lymphatic: no cervical or axillary lymphadenopathy Results & Data Results & Data ([facility]) Vital Signs (Past 12 Hours) Vital Signs Temp Pulse Resp BP Pulse Ox O2 Del Method 12/09/21 04:12 36.6 C 67 18 114/75 95 Room Air 12/09/21 00:03 36.6 C 66 18 113/74 95 Room Air 12/08/21 21:07 36.5 C 63 18 122/75 96 Room Air 12/08/21 19:18 36.8 C 73 18 124/78 95 Room Air PG Care Time/CCT Total # of Minutes Spent Total Time Spent with Patient: Total time spent is greater than 50% in coordination of care (as documented) at patient's floor/unit and/or counseling patient: Coding Level of Care Code 23754 Inpt Consult Level 3 Diagnoses Osteoarthritis of right knee M17.11 Anemia D64.9 Anxiety F41.9 Depression F32.9 Depression Type: unspecified GERD (gastroesophageal reflux disease) K21.9 Diabetes mellitus E11.9 (1) Depression Depression Type: unspecified Qualified Code(s): F32.9 - Major depressive disorder, single episode, unspecified
[2021-12-09 06:34] LABS: Hematocrit (blood only) 34.2 % (34.1-44.9); Hemoglobin 11.4 g/dl (12.0-16.0); Mean Corpuscular Hemoglobin 29.8 pg (25.0-34.0); Mean Corpuscular Hgb Conc 33.3 g/dL (32.0-36.0); Mean Corpuscular Volume 89.5 fL (80.0-100.0); Mean Platelet Volume 10.1 fL (9.4-12.3); Platelet Count 120 K/uL (130-400); RDW Coefficient of Variation 14.3 % (11.5-14.5); RDW Standard Deviation 46.1 fL (36.4-46.3); Red Blood Count 3.82 M/uL (3.93-5.22)
[2021-12-09 07:07] LABS: BUN Creatinine Ratio 22.2 (10-20); Calcium 8.5 mg/dl (8.5-10.1); Creatinine Clr Calc Pharmacy 85.4 ml/min; Est GFR (African American) 86.4 ml/min; Est GFR (Non-African American) 74.6 ml/min; Potassium 4.7 mmol/L (3.5-5.1)
--- NOTE | 2021-12-09 07:23 | Orthopedic Progress Note ---
Date of Service December 09, 2021 Assessment & Plan (1) Osteoarthritis of right knee: Plan: Postop day #1 right total knee arthroplasty -PT/OT -Pain management as written -DVT prophylaxis: SCDs, teds, Xarelto 10 mg daily. -AM labs as above.Hemoglobin is 11.4 this morning From 11.9 preop. -Discharge planning: Patient will be going home upon discharge. She is planning on outpatient therapy. Plan on discharge once stable likely tomorrow. We will see how she does with therapy and with her pain control later today. Admission and Anticipated Discharge Date Admission Date: December 08, 2021 Subjective Patient resting in bed comfortably. She is having some pain this morning. Pain is controlled with 10 mg of oxycodone. She has had to have 1 dose of hydromorphone as well. No other complaints at this time. Denies chest pain, shortness of breath, Dizziness, nausea/vomiting/diarrhea. Review of Systems Review of Systems: All systems reviewed & are unremarkable except as noted in Subjective Physical Exam Physical Exam: Right knee: Dressing is clean, dry, intact. Hemovac on suction. Dennys in place. Toes are mobile with good dorsiflexion. No calf tenderness. Able to straight leg raise. Distally neurovascular status and sensation intact. Constitutional: WD/WN, vitals as above Results & Data ([facility]) Vital Signs (Past 12 Hours) Vital Signs Temp Pulse Resp BP Pulse Ox O2 Del Method 12/09/21 04:12 36.6 C 67 18 114/75 95 Room Air 12/09/21 00:03 36.6 C 66 18 113/74 95 Room Air 12/08/21 21:07 36.5 C 63 18 122/75 96 Room Air Laboratory Results Lab Results 12/08/21 12/08/21 12/08/21 Range/Units 06:13 06:33 06:35 WBC (4.8-10.8) K/ul RBC (3.93-5.22) M/uL Hgb (12.0-16.0) g/dl Hct (34.1-44.9) % MCV (80.0-100.0) fL MCH (25.0-34.0) pg MCHC (32.0-36.0) g/dL RDW Std Deviation (36.4-46.3) fL RDW Coeff of Margarita (11.5-14.5) % Plt Count (130-400) K/uL MPV (9.4-12.3) fL Sodium (136-145) mmol/L Potassium (3.5-5.1) mmol/L Chloride (98-107) mmol/L Carbon Dioxide (21-32) mmol/L Anion Gap (3-11) BUN (6-23) mg/dl Creatinine (0.6-1.2) mg/dl Est Cr Clr Drug Dosing ml/min Est GFR ( Amer) ml/min Est GFR (Non-Af Amer) ml/min BUN/Creatinine Ratio (10-20) Glucose (70-99(Fasting)) mg/dl POC Glucose 325 H* 329 H* (70-99) mg/dl Calcium (8.5-10.1) mg/dl SARS-CoV-2, RNA, NAAT NEGATIVE (NEGATIVE) 12/08/21 12/08/21 12/08/21 Range/Units 08:47 09:59 11:12 WBC (4.8-10.8) K/ul RBC (3.93-5.22) M/uL Hgb (12.0-16.0) g/dl Hct (34.1-44.9) % MCV (80.0-100.0) fL MCH (25.0-34.0) pg MCHC (32.0-36.0) g/dL RDW Std Deviation (36.4-46.3) fL RDW Coeff of Margarita (11.5-14.5) % Plt Count (130-400) K/uL MPV (9.4-12.3) fL Sodium (136-145) mmol/L Potassium (3.5-5.1) mmol/L Chloride (98-107) mmol/L Carbon Dioxide (21-32) mmol/L Anion Gap (3-11) BUN (6-23) mg/dl Creatinine (0.6-1.2) mg/dl Est Cr Clr Drug Dosing ml/min Est GFR ( Amer) ml/min Est GFR (Non-Af Amer) ml/min BUN/Creatinine Ratio (10-20) Glucose (70-99(Fasting)) mg/dl POC Glucose 260 H 238 H 194 H (70-99) mg/dl Calcium (8.5-10.1) mg/dl SARS-CoV-2, RNA, NAAT (NEGATIVE) 12/08/21 12/08/21 12/08/21 Range/Units 13:06 17:25 17:26 WBC (4.8-10.8) K/ul RBC (3.93-5.22) M/uL Hgb (12.0-16.0) g/dl Hct (34.1-44.9) % MCV (80.0-100.0) fL MCH (25.0-34.0) pg MCHC (32.0-36.0) g/dL RDW Std Deviation (36.4-46.3) fL RDW Coeff of Margarita (11.5-14.5) % Plt Count (130-400) K/uL MPV (9.4-12.3) fL Sodium (136-145) mmol/L Potassium (3.5-5.1) mmol/L Chloride (98-107) mmol/L Carbon Dioxide (21-32) mmol/L Anion Gap (3-11) BUN (6-23) mg/dl Creatinine (0.6-1.2) mg/dl Est Cr Clr Drug Dosing ml/min Est GFR ( Amer) ml/min Est GFR (Non-Af Amer) ml/min BUN/Creatinine Ratio (10-20) Glucose (70-99(Fasting)) mg/dl POC Glucose 211 H 343 H* 390 H* (70-99) mg/dl Calcium (8.5-10.1) mg/dl SARS-CoV-2, RNA, NAAT (NEGATIVE) 12/08/21 12/09/21 12/09/21 Range/Units 20:58 00:02 04:09 WBC (4.8-10.8) K/ul RBC (3.93-5.22) M/uL Hgb (12.0-16.0) g/dl Hct (34.1-44.9) % MCV (80.0-100.0) fL MCH (25.0-34.0) pg MCHC (32.0-36.0) g/dL RDW Std Deviation (36.4-46.3) fL RDW Coeff of Margarita (11.5-14.5) % Plt Count (130-400) K/uL MPV (9.4-12.3) fL Sodium (136-145) mmol/L Potassium (3.5-5.1) mmol/L Chloride (98-107) mmol/L Carbon Dioxide (21-32) mmol/L Anion Gap (3-11) BUN (6-23) mg/dl Creatinine (0.6-1.2) mg/dl Est Cr Clr Drug Dosing ml/min Est GFR ( Amer) ml/min Est GFR (Non-Af Amer) ml/min BUN/Creatinine Ratio (10-20) Glucose (70-99(Fasting)) mg/dl POC Glucose 369 H* 207 H 172 H (70-99) mg/dl Calcium (8.5-10.1) mg/dl SARS-CoV-2, RNA, NAAT (NEGATIVE) 12/09/21 12/09/21 Range/Units 06:12 06:12 WBC 9.10 (4.8-10.8) K/ul RBC 3.82 L (3.93-5.22) M/uL Hgb 11.4 L (12.0-16.0) g/dl Hct 34.2 (34.1-44.9) % MCV 89.5 (80.0-100.0) fL MCH 29.8 (25.0-34.0) pg MCHC 33.3 (32.0-36.0) g/dL RDW Std Deviation 46.1 (36.4-46.3) fL RDW Coeff of Margarita 14.3 (11.5-14.5) % Plt Count 120 L (130-400) K/uL MPV 10.1 (9.4-12.3) fL Sodium 133 L (136-145) mmol/L Potassium 4.7 (3.5-5.1) mmol/L Chloride 104 (98-107) mmol/L Carbon Dioxide 23 (21-32) mmol/L Anion Gap 6 (3-11) BUN 20 (6-23) mg/dl Creatinine 0.90 (0.6-1.2) mg/dl Est Cr Clr Drug Dosing 85.4 ml/min Est GFR ( Amer) 86.4 ml/min Est GFR (Non-Af Amer) 74.6 ml/min BUN/Creatinine Ratio 22.2 H (10-20) Glucose 196 H (70-99(Fasting)) mg/dl POC Glucose (70-99) mg/dl Calcium 8.5 (8.5-10.1) mg/dl SARS-CoV-2, RNA, NAAT (NEGATIVE)
--- NOTE | 2021-12-09 08:13 | Hospitalist Progress Note ---
Date of Service December 09, 2021 Assessment & Plan (1) Osteoarthritis of right knee: Plan: POD#1 s/p Right Total Knee Arthroplasty(Right), lateral release, apical superficial wound VAC, increased difficulty obesity BMI 42.6- Von Chirinos MD on 12/08. EBL 5cc Pain control/bowel regimen/PT/OT per primary service ancef for consuelo-op abx WBC 9k, afebrile Hgb 11.9--> 11.4, acute blood loss from surgery, stable from pre-op BSGs elevated post-op from steroids, pharmacy on consult for glycemic management Utilizing Xarelto for DVT prevention given hx PE in ~2011 after PICC line, completed treatment. Did get dose Celebrex, outpatient meds show etodolac 300mg BID --> would advise against with using Xarelto at d/c Dispo per primary service -- either d/c later today or tomorrow --> per patient, would like to consider rehab over outpatient therapy given transportation issues. 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 ruled out overflow several times. completed buifeedback 10/2019. Plans for gastric sleeve in future at [facility]. Ruled out for celiac, IBD, microscopic colitis, thyroid disease. last c-scope 2018, last EGD 2012 Iron panel -- iron 48, trans% sat low at 13. Ferritin lower normal 28.2 Ferrous sulfate daily for AM ordered and continued daily vs QOD given chronic abd pain issues, however does have diarrhea and discussed constipation side effects, may tolerate. B12 checked as on metformin as well, baseline neuropathy on gabapentin --> LOW normal 182 --> IM ordered while inpatient, recommend continue PO at d/c. Placed on d/c instructions drainage from hemovac, on xarelto -- monitor blood counts in AM (3) Anxiety: Plan: also with depression, continue home meds mood stable but anxious about having sister stay overnight given 2 hr transport. RN arranging with pleating supervisor to allow to stay (4) Depression: Plan: as above (5) GERD (gastroesophageal reflux disease): Plan: stable,resume home meds -- primary ordered protonix 40mg BID while inpatient (6) Diabetes mellitus: Plan: A1c 6.8 most recently (was 10 last year) BSGs 300s post-operatively, likely from steroids during surgery Pharmacy consulted for glycemic management resume home meds at d/c checking B12 while on metformin given underlying anemia --> LOW normal, replacement added BSGs improved (7) B12 deficiency: Plan: checked as on metformin/neuropathy/anemia --> 182 IM while inpatient, rec PO at d/c (8) Hx pulmonary embolism: Plan: prior history early , thought related to PICC line placed for lab draws when hospitalized for pneumonia placed on Xarelto for DVT prophylaxis per primary service monitor for bleeding Plan continued inpatient stay through tomorrow for pain control per patient Hospitalist service to sign off. Please call with any questions/concerns Admission and Anticipated Discharge Date Admission Date: December 08, 2021 Supervising Physician Co-Signing Physician Notes TYLER Supervision Note: I did not personally see or examine the patient today, but I verified all bell points of TYLER Tate's assessment and plan with the following exceptions/additions: None Subjective eval this morning, doign well increased pain compared ot yesterday but controlled with ordered medications hx PE in 2010 but states was in hospital and IVs blowing and had PICC line for lab draws, removed and then ended up b/l PE and at tertiary care for SOB. On Xarelto for DVT prevention post-op. Sister stayed at bedside, doesn't drive. Plans to stay tonight. RN to arrange with nuring pleating supervisor given daughter only one to drive and from 2 hours away. Patient initially hoping for OP PT but no transportation and wanting inpatient. Will check with CM based on therapy recommendations to send referrals if appropriate. No fever/chills, chest pain, shortness of breath, abdomianl pain (passing gas this am, had hot tea), nausea or vomiting. Hx REMBERTO got new machine as hers was on backorder but doesn't have power cord yet. Will order for tonight while inpatient as reported poor sleep. Review of Systems Review of Systems: All systems reviewed & are unremarkable except as noted in HPI & below Physical Exam Physical Exam: General: WD/WN obese female sitting up in bed, sister at bedside, NAD HEENT: head normocephalic, atraumatic, mmm, thick neck, trachea midline without deviation Resp: CTAB, diminished in the bases, no w/c, on RA CV: RRR, no m/r/g, no calf tenderness, equal in size, pulses palpable GI: +BS, distended, nontender : NO GRAVES MSK/Neuro: moves all extremities, arsenio wrap to RLE with hemovac with bloody drainage, toes mobile, NVI Psych: AOx3, pleasant and cooperative, anxious about sister staying the night/discharge planning Results & Data Results & Data ([facility]) Vital Signs (Past 12 Hours) Vital Signs Temp Pulse Resp BP Pulse Ox O2 Del Method 12/09/21 07:24 36.7 C 64 14 127/82 94 Room Air 12/09/21 04:12 36.6 C 67 18 114/75 95 Room Air 12/09/21 00:03 36.6 C 66 18 113/74 95 Room Air 12/08/21 21:07 36.5 C 63 18 122/75 96 Room Air Laboratory Results 12/09/21 12/09/21 12/09/21 Range/Units 12:17 08:38 08:38 WBC (4.8-10.8) K/ul RBC (3.93-5.22) M/uL Hgb (12.0-16.0) g/dl Hct (34.1-44.9) % MCV (80.0-100.0) fL MCH (25.0-34.0) pg MCHC (32.0-36.0) g/dL RDW Std Deviation (36.4-46.3) fL RDW Coeff of Margarita (11.5-14.5) % Plt Count (130-400) K/uL MPV (9.4-12.3) fL Sodium (136-145) mmol/L Potassium (3.5-5.1) mmol/L Chloride (98-107) mmol/L Carbon Dioxide (21-32) mmol/L Anion Gap (3-11) BUN (6-23) mg/dl Creatinine (0.6-1.2) mg/dl Est Cr Clr Drug Dosing ml/min Est GFR ( Amer) ml/min Est GFR (Non-Af Amer) ml/min BUN/Creatinine Ratio (10-20) Glucose (70-99(Fasting)) mg/dl POC Glucose 234 H (70-99) mg/dl Calcium (8.5-10.1) mg/dl Iron 48 (35-150) mcg/dl TIBC 359 (250-450) mcg/dl Unsaturated IBC 311 (155-355) mcg/dl Transferrin % Sat 13 L (15-50) % Ferritin 28.2 (8-388) ng/ml Vitamin B12 182 (180-914) pg/ml 12/09/21 12/09/21 12/09/21 Range/Units 08:09 06:12 06:12 WBC 9.10 (4.8-10.8) K/ul RBC 3.82 L (3.93-5.22) M/uL Hgb 11.4 L (12.0-16.0) g/dl Hct 34.2 (34.1-44.9) % MCV 89.5 (80.0-100.0) fL MCH 29.8 (25.0-34.0) pg MCHC 33.3 (32.0-36.0) g/dL RDW Std Deviation 46.1 (36.4-46.3) fL RDW Coeff of Margarita 14.3 (11.5-14.5) % Plt Count 120 L (130-400) K/uL MPV 10.1 (9.4-12.3) fL Sodium 133 L (136-145) mmol/L Potassium 4.7 (3.5-5.1) mmol/L Chloride 104 (98-107) mmol/L Carbon Dioxide 23 (21-32) mmol/L Anion Gap 6 (3-11) BUN 20 (6-23) mg/dl Creatinine 0.90 (0.6-1.2) mg/dl Est Cr Clr Drug Dosing 85.4 ml/min Est GFR ( Amer) 86.4 ml/min Est GFR (Non-Af Amer) 74.6 ml/min BUN/Creatinine Ratio 22.2 H (10-20) Glucose 196 H (70-99(Fasting)) mg/dl POC Glucose 206 H (70-99) mg/dl Calcium 8.5 (8.5-10.1) mg/dl Iron (35-150) mcg/dl TIBC (250-450) mcg/dl Unsaturated IBC (155-355) mcg/dl Transferrin % Sat (15-50) % Ferritin (8-388) ng/ml Vitamin B12 (180-914) pg/ml 12/09/21 12/09/21 12/08/21 Range/Units 04:09 00:02 20:58 WBC (4.8-10.8) K/ul RBC (3.93-5.22) M/uL Hgb (12.0-16.0) g/dl Hct (34.1-44.9) % MCV (80.0-100.0) fL MCH (25.0-34.0) pg MCHC (32.0-36.0) g/dL RDW Std Deviation (36.4-46.3) fL RDW Coeff of Margarita (11.5-14.5) % Plt Count (130-400) K/uL MPV (9.4-12.3) fL Sodium (136-145) mmol/L Potassium (3.5-5.1) mmol/L Chloride (98-107) mmol/L Carbon Dioxide (21-32) mmol/L Anion Gap (3-11) BUN (6-23) mg/dl Creatinine (0.6-1.2) mg/dl Est Cr Clr Drug Dosing ml/min Est GFR ( Amer) ml/min Est GFR (Non-Af Amer) ml/min BUN/Creatinine Ratio (10-20) Glucose (70-99(Fasting)) mg/dl POC Glucose 172 H 207 H 369 H* (70-99) mg/dl Calcium (8.5-10.1) mg/dl Iron (35-150) mcg/dl TIBC (250-450) mcg/dl Unsaturated IBC (155-355) mcg/dl Transferrin % Sat (15-50) % Ferritin (8-388) ng/ml Vitamin B12 (180-914) pg/ml 12/08/21 12/08/21 Range/Units 17:26 17:25 WBC (4.8-10.8) K/ul RBC (3.93-5.22) M/uL Hgb (12.0-16.0) g/dl Hct (34.1-44.9) % MCV (80.0-100.0) fL MCH (25.0-34.0) pg MCHC (32.0-36.0) g/dL RDW Std Deviation (36.4-46.3) fL RDW Coeff of Margarita (11.5-14.5) % Plt Count (130-400) K/uL MPV (9.4-12.3) fL Sodium (136-145) mmol/L Potassium (3.5-5.1) mmol/L Chloride (98-107) mmol/L Carbon Dioxide (21-32) mmol/L Anion Gap (3-11) BUN (6-23) mg/dl Creatinine (0.6-1.2) mg/dl Est Cr Clr Drug Dosing ml/min Est GFR ( Amer) ml/min Est GFR (Non-Af Amer) ml/min BUN/Creatinine Ratio (10-20) Glucose (70-99(Fasting)) mg/dl POC Glucose 390 H* 343 H* (70-99) mg/dl Calcium (8.5-10.1) mg/dl Iron (35-150) mcg/dl TIBC (250-450) mcg/dl Unsaturated IBC (155-355) mcg/dl Transferrin % Sat (15-50) % Ferritin (8-388) ng/ml Vitamin B12 (180-914) pg/ml PG Care Time/CCT Total # of Minutes Spent Total Time Spent with Patient: Total time spent is greater than 50% in coordination of care (as documented) at patient's floor/unit and/or counseling patient: Coding Level of Care Code 09272 Subseq Obs Care Lvl 3 Diagnoses Osteoarthritis of right knee M17.11 Anemia D64.9 Anxiety F41.9 Depression F32.9 Depression Type: unspecified GERD (gastroesophageal reflux disease) K21.9 Diabetes mellitus E11.9 B12 deficiency E53.8 Hx pulmonary embolism Z86.711 (1) Depression Depression Type: unspecified Qualified Code(s): F32.9 - Major depressive disorder, single episode, unspecified
[2021-12-09] MEDS: FLUTICASONE/VILANTEROL 100/25MCG 14 PUFFS/INHALER INH SCH (09:00)
[2021-12-09] MEDS: HYDROmorphone INJ 0.5 MG/0.5 ML SYR IV PRN ×2 (09:01→16:19)
[2021-12-09] MEDS: FLUoxetine HCL 10 MG CAP PO SCH (09:03)
[2021-12-09] MEDS: buPROPion HCl 100 MG TABLET PO SCH ×2 (09:03→20:57)
[2021-12-09] MEDS: DOCUSATE SODIUM 100 MG CAP PO SCH ×2 (09:03→20:57)
[2021-12-09] MEDS: GABAPENTIN 400 MG CAP PO SCH ×3 (09:03→20:58)
[2021-12-09] MEDS: MULTIVITAMIN TAB PO SCH (09:04)
[2021-12-09] MEDS: RIVAROXABAN 10 MG TABLET PO SCH (09:04)
[2021-12-09] MEDS: lisinopril 5 MG TAB PO SCH (09:04)
[2021-12-09] MEDS: LANTUS PER UNIT CHARGE SQ SCH ×2 (09:16→20:52)
[2021-12-09 09:33] LABS: Ferritin 28.2 ng/ml (8-388)
[2021-12-09] MEDS: PANTOprazole 40 MG TAB PO SCH ×2 (10:14→17:54)
--- NOTE | 2021-12-09 10:41 | Pharmacy Report ---
Pharmacy Glycemic Short Note 2 - Date of Service December 09, 2021 - Glycemic Short BSG Results (Last 24 hours): 12/08/21 12/08/21 12/08/21 09:59 11:12 13:06 Glucose POC Glucose 238 H 194 H 211 H 12/08/21 12/08/21 12/08/21 17:25 17:26 20:58 Glucose POC Glucose 343 H* 390 H* 369 H* 12/09/21 12/09/21 12/09/21 00:02 04:09 06:12 Glucose 196 H POC Glucose 207 H 172 H 12/09/21 08:09 Glucose POC Glucose 206 H OUTPATIENT ANTIDIABETIC REGIMEN: * Trulicity, metformin, Lispro mix - 40 units bid * A1c 6.8% ASSESSMENT: 12/09 * Patient received total of 117 units of insulin yesterday, of which 50 units were basal insulin * Fasting BSG 196 mg/dL - had received about ~10 units overnight of correctional insulin, therefore will target closer to 60 units of basal insulin. Will start Lantus 30 units bid * BSGs slowly trending down since yesterday, will tighten CF/CR this AM as I anticipate patient to be eating more 12/08 * 51 year old female, POD 0 right TKA - pharmacy consulted for glycemic management as blood sugars elevated postop. Received 16 units of short acting insulin this morning for elevated AM blood sugar. Blood sugars this evening elevated in the 300s - patient had been ordered diet for lunch but was not covered with insulin. Received glycemic consult this evening, entered in stat Lantus order and also novolog ACHS. Patient last took her home insulin yesterday evening. * Will add overnight checks to ensure BSGs trending downward. PLAN FOR INPATIENT GLYCEMIC CONTROL: * Hold outpatient oral diabetes medications * Basal insulin * Lantus 30 units bid * Bolus insulin * NovoLog per scale ACHS or Q6hrs while NPO * Goal Range: Low 110 mg/dL - High 140 mg/dL * Correction Factor: 10 mg/dL/unit * Nutritional / Prandial insulin per carb ratio of 1 unit per 4 grams CHO consumed
[2021-12-09] MEDS: CYANOCOBALAMIN 1000 MCG/ML VIAL IM SCH (11:29)
[2021-12-09] MEDS: ONDANSETRON INJ 2 MG/ML 2 ML VIAL IV PRN (18:31)
[2021-12-09] MEDS: FLUoxetine HCL 20 MG CAP PO SCH (20:57)
[2021-12-09] MEDS: cloNIDine HCL 0.1 MG TAB PO SCH (20:57)
[2021-12-09] MEDS: ARIPiprazole 10 MG TAB PO SCH (20:57)
[2021-12-09] MEDS: lamoTRIgine 25 MG TAB PO SCH (20:58)
[2021-12-09] MEDS: SENNA 8.6 MG TAB PO SCH (20:58)
[2021-12-10] MEDS ORDERED: INSULIN ASPART PER UNIT SC SCH
[2021-12-10] MEDS: oxyCODONE HCL IR 5 MG TAB (IMMEDIATE RELEASE) PO PRN ×4 (04:33→21:27)
[2021-12-10] MEDS: PANTOprazole 40 MG TAB PO SCH ×3 (06:03→17:27)
[2021-12-10] MEDS: ACETAMINOPHEN 500 MG TAB PO SCH ×3 (06:03→20:39)
[2021-12-10 07:33] LABS: BUN Creatinine Ratio 23.8 (10-20); Calcium 8.3 mg/dl (8.5-10.1); Creatinine Clr Calc Pharmacy 73.2 ml/min; Est GFR (African American) 71.7 ml/min; Est GFR (Non-African American) 61.9 ml/min; Magnesium 1.8 mg/dl (1.7-2.4); Potassium 4.4 mmol/L (3.5-5.1)
--- NOTE | 2021-12-10 08:21 | Orthopedic Progress Note ---
Date of Service December 10, 2021 Assessment & Plan (1) Status post right knee replacement: Plan: 51 yo female stable POD #2 s/p right TKA 1. Med management 2. DVT prophylaxis- Xarelto, SCDs 3. PT/OT 4. D/C planning- home w/ OPPT Admission and Anticipated Discharge Date Admission Date: December 08, 2021 Subjective Pt resting in chair, denies complaints, moderate pain overnight Physical Exam Physical Exam: KYLEE dressing/vac in place, toes mobile, NVI, calves soft, mildly tender Results & Data ([facility]) Vital Signs (Past 12 Hours) Vital Signs Temp Pulse Pulse Resp BP Pulse Ox O2 Del Method 12/10/21 07:58 36.7 C 70 18 110/70 94 Room Air 12/10/21 03:03 14 12/09/21 22:12 75 19 96 12/09/21 20:55 36.6 C 71 18 119/72 97 Room Air FiO2 12/10/21 07:58 12/10/21 03:03 21 12/09/21 22:12 21 12/09/21 20:55 Laboratory Results 12/10/21 12/10/21 12/10/21 Range/Units 07:57 06:47 00:12 Sodium 132 L (136-145) mmol/L Potassium 4.4 (3.5-5.1) mmol/L Chloride 101 (98-107) mmol/L Carbon Dioxide 27 (21-32) mmol/L Anion Gap 4 (3-11) BUN 25 H (6-23) mg/dl Creatinine 1.05 (0.6-1.2) mg/dl Est Cr Clr Drug Dosing 73.2 ml/min Est GFR ( Amer) 71.7 ml/min Est GFR (Non-Af Amer) 61.9 ml/min BUN/Creatinine Ratio 23.8 H (10-20) Glucose 194 H (70-99(Fasting)) mg/dl POC Glucose 185 H 237 H (70-99) mg/dl Calcium 8.3 L (8.5-10.1) mg/dl Magnesium 1.8 (1.7-2.4) mg/dl Iron (35-150) mcg/dl TIBC (250-450) mcg/dl Unsaturated IBC (155-355) mcg/dl Transferrin % Sat (15-50) % Ferritin (8-388) ng/ml Vitamin B12 (180-914) pg/ml 12/09/21 12/09/21 12/09/21 Range/Units 20:33 17:06 12:17 Sodium (136-145) mmol/L Potassium (3.5-5.1) mmol/L Chloride (98-107) mmol/L Carbon Dioxide (21-32) mmol/L Anion Gap (3-11) BUN (6-23) mg/dl Creatinine (0.6-1.2) mg/dl Est Cr Clr Drug Dosing ml/min Est GFR ( Amer) ml/min Est GFR (Non-Af Amer) ml/min BUN/Creatinine Ratio (10-20) Glucose (70-99(Fasting)) mg/dl POC Glucose 251 H 217 H 234 H (70-99) mg/dl Calcium (8.5-10.1) mg/dl Magnesium (1.7-2.4) mg/dl Iron (35-150) mcg/dl TIBC (250-450) mcg/dl Unsaturated IBC (155-355) mcg/dl Transferrin % Sat (15-50) % Ferritin (8-388) ng/ml Vitamin B12 (180-914) pg/ml 12/09/21 12/09/21 Range/Units 08:38 08:38 Sodium (136-145) mmol/L Potassium (3.5-5.1) mmol/L Chloride (98-107) mmol/L Carbon Dioxide (21-32) mmol/L Anion Gap (3-11) BUN (6-23) mg/dl Creatinine (0.6-1.2) mg/dl Est Cr Clr Drug Dosing ml/min Est GFR ( Amer) ml/min Est GFR (Non-Af Amer) ml/min BUN/Creatinine Ratio (10-20) Glucose (70-99(Fasting)) mg/dl POC Glucose (70-99) mg/dl Calcium (8.5-10.1) mg/dl Magnesium (1.7-2.4) mg/dl Iron 48 (35-150) mcg/dl TIBC 359 (250-450) mcg/dl Unsaturated IBC 311 (155-355) mcg/dl Transferrin % Sat 13 L (15-50) % Ferritin 28.2 (8-388) ng/ml Vitamin B12 182 (180-914) pg/ml
[2021-12-10] MEDS: FLUTICASONE/VILANTEROL 100/25MCG 14 PUFFS/INHALER INH SCH (08:39)
[2021-12-10] MEDS: FERROUS SULFATE 325 MG TAB PO SCH (08:40)
[2021-12-10] MEDS: FLUoxetine HCL 10 MG CAP PO SCH (08:40)
[2021-12-10] MEDS: buPROPion HCl 100 MG TABLET PO SCH ×2 (08:40→20:40)
[2021-12-10] MEDS: CYANOCOBALAMIN 1000 MCG/ML VIAL IM SCH (08:40)
[2021-12-10] MEDS: GABAPENTIN 400 MG CAP PO SCH ×3 (08:40→20:40)
[2021-12-10] MEDS: lisinopril 5 MG TAB PO SCH (08:41)
[2021-12-10] MEDS: RIVAROXABAN 10 MG TABLET PO SCH (08:41)
[2021-12-10] MEDS: MULTIVITAMIN TAB PO SCH (08:41)
[2021-12-10] MEDS: INSULIN ASPART PER UNIT SC SCH ×4 (08:46→20:48)
[2021-12-10] MEDS: DOCUSATE SODIUM 100 MG CAP PO SCH ×2 (08:53→20:42)
[2021-12-10] MEDS ORDERED: LANTUS PER UNIT CHARGE SQ SCH (09:00)
[2021-12-10] MEDS: ONDANSETRON INJ 2 MG/ML 2 ML VIAL IV PRN ×2 (09:59→18:42)
[2021-12-10] MEDS: HYDROmorphone INJ 0.5 MG/0.5 ML SYR IV PRN ×3 (09:59→22:39)
--- NOTE | 2021-12-10 15:02 | Pharmacy Report ---
Pharmacy Glycemic Short Note 2 - Date of Service December 10, 2021 - Glycemic Short BSG Results (Last 24 hours): 12/09/21 12/09/21 12/10/21 17:06 20:33 00:12 Glucose POC Glucose 217 H 251 H 237 H 12/10/21 12/10/21 12/10/21 06:47 07:57 11:58 Glucose 194 H POC Glucose 185 H 279 H OUTPATIENT ANTIDIABETIC REGIMEN: * Trulicity, metformin, Lispro mix - 40 units bid * A1c 6.8% ASSESSMENT: 12/10: * Patient received total 145 units of insulin yesterday: 60 units basal + 85 units bolus * BSGs were elevated above 200 mg/dl for the major part of yesterday. * Fasting BSG today was 185 mg/dl. Basal dose was increased to 35 units this AM and further increased to 40 units at HS * Novolog parameters tightened with breakfast today. Expect BSGs to trend downwards this evening. 12/09 * Patient received total of 117 units of insulin yesterday, of which 50 units were basal insulin * Fasting BSG 196 mg/dL - had received about ~10 units overnight of correctional insulin, therefore will target closer to 60 units of basal insulin. Will start Lantus 30 units bid * BSGs slowly trending down since yesterday, will tighten CF/CR this AM as I anticipate patient to be eating more 12/08 * 51 year old female, POD 0 right TKA - pharmacy consulted for glycemic management as blood sugars elevated postop. Received 16 units of short acting insulin this morning for elevated AM blood sugar. Blood sugars this evening elevated in the 300s - patient had been ordered diet for lunch but was not covered with insulin. Received glycemic consult this evening, entered in stat Lantus order and also novolog ACHS. Patient last took her home insulin yesterday evening. * Will add overnight checks to ensure BSGs trending downward. PLAN FOR INPATIENT GLYCEMIC CONTROL: * Hold outpatient oral diabetes medications * Basal insulin: increased * Lantus 35 units SQ today AM then 40 units SQ BID starting tonight * Bolus insulin: tightened CF/CR * NovoLog per scale ACHS or Q6hrs while NPO * Goal Range: Low 110 mg/dL - High 140 mg/dL * Correction Factor: 8 mg/dL/unit * Nutritional / Prandial insulin per carb ratio of 1 unit per 3.5 grams CHO consumed
[2021-12-10] MEDS: ARIPiprazole 10 MG TAB PO SCH (20:39)
[2021-12-10] MEDS: cloNIDine HCL 0.1 MG TAB PO SCH (20:39)
[2021-12-10] MEDS: SENNA 8.6 MG TAB PO SCH (20:40)
[2021-12-10] MEDS: FLUoxetine HCL 20 MG CAP PO SCH (20:40)
[2021-12-10] MEDS: lamoTRIgine 25 MG TAB PO SCH (20:40)
[2021-12-10] MEDS: LANTUS PER UNIT CHARGE SQ SCH (20:48)
[2021-12-11] MEDS: oxyCODONE HCL IR 5 MG TAB (IMMEDIATE RELEASE) PO PRN ×3 (02:13→10:29)
[2021-12-11] MEDS: PANTOprazole 40 MG TAB PO SCH (06:16)
[2021-12-11] MEDS: ACETAMINOPHEN 500 MG TAB PO SCH ×2 (06:16→13:02)
--- NOTE | 2021-12-11 08:41 | Orthopedic Progress Note ---
Date of Service December 11, 2021 Assessment & Plan (1) Status post right knee replacement: Plan: 51 yo female stable POD #3 s/p right TKA 1. Med management 2. DVT prophylaxis- Xarelto, SCDs 3. PT/OT 4. D/C planning- home w/ OPPT, encouraged pt to be more active, encouraged d/c today if BP improves Admission and Anticipated Discharge Date Admission Date: December 08, 2021 Subjective Pt's d/c cancelled yesterday due to pain control issues, particularly with PT. Pt states she feels better today, BP running low Physical Exam Physical Exam: KYLEE dressing in place, toes mobile, NVI Results & Data ([facility]) Vital Signs (Past 12 Hours) Vital Signs Temp Pulse Pulse Resp BP Pulse Ox O2 Del Method 12/11/21 07:55 36.7 C 95 H 18 95/58 L 96 Room Air 12/11/21 04:15 80 14 95 12/10/21 23:23 80 23 95
[2021-12-11] MEDS: lisinopril 5 MG TAB PO SCH (08:43)
[2021-12-11] MEDS: FLUTICASONE/VILANTEROL 100/25MCG 14 PUFFS/INHALER INH SCH (08:49)
[2021-12-11] MEDS: DOCUSATE SODIUM 100 MG CAP PO SCH (08:50)
[2021-12-11] MEDS: CYANOCOBALAMIN 1000 MCG/ML VIAL IM SCH (08:50)
[2021-12-11] MEDS: buPROPion HCl 100 MG TABLET PO SCH (08:50)
[2021-12-11] MEDS: GABAPENTIN 400 MG CAP PO SCH ×2 (08:51→13:02)
[2021-12-11] MEDS: FERROUS SULFATE 325 MG TAB PO SCH (08:51)
[2021-12-11] MEDS: FLUoxetine HCL 10 MG CAP PO SCH (08:51)
[2021-12-11] MEDS: INSULIN ASPART PER UNIT SC SCH ×2 (08:52→12:41)
[2021-12-11] MEDS: MULTIVITAMIN TAB PO SCH (08:52)
[2021-12-11] MEDS: RIVAROXABAN 10 MG TABLET PO SCH (08:52)
[2021-12-11] MEDS: LANTUS PER UNIT CHARGE SQ SCH (08:52)
[2021-12-11] MEDS: ONDANSETRON INJ 2 MG/ML 2 ML VIAL IV PRN (12:08)
--- NOTE | 2021-12-12 07:44 | Discharge Summary ---
Date of Service December 12, 2021 Admission HPI Per Admitting Provider 51-year-old female with past medical history significant for diabetes, PE, sleep apnea, bipolar who presents with ongoing right knee pain. She has failed conservative measures including rest, cortisone injections, bracing, therapy. Pain is interfering with her daily activities. She would like to proceed with surgical intervention. Patient denies headaches, sweats, fevers, chills, double vision, blurred vision, cough, sore throat, dysphagia, chest pain, sob, wheezing, n/v/d/c, numbness, tingling, fatigue, urinary symptoms, mood disorders. ROS positive for Right knee pain and stiffness. Admission Exam Per Admitting Provider Constitutional: well developed and well nourished; no acute distress Eyes: PERRL, conjunctivae normal, anicteric sclerae ENMT: external ear and nose normal, oropharynx normal Neck: trachea midline, no thyromegaly Respiratory: normal respiratory effort, lungs clear to auscultation Cardiovascular: RRR, no murmur, no edema Musculoskeletal: Right knee:Varus alignment. Mild effusion. Medial joint line tenderness. She has active painful range of motion 10 to 115 degrees. Stable to valgus and varus stress test. Skin: no rashes, warm and dry Neurologic: patellar DTR's 2+ bilat, sensation intact Psychiatric: A+Ox3, euthymic affect Principal Diagnosis Right knee osteoarthritis Discharge Exam KYLEE dressing in place, toes mobile, NVI Constitutional well developed and well nourished; no acute distress Discharge Data Allergies Allergy/AdvReac Type Severity Reaction Status Date / Time moxifloxacin [From Avelox] Allergy Severe Anaphylaxis Verified 11/18/21 12:58 aspirin Allergy Unknown BREATHING Verified 11/18/21 12:58 ISSUES desvenlafaxine Allergy Unknown rash Verified 11/18/21 12:58 latex Allergy Unknown RASH, Verified 11/18/21 12:58 HIVES,SOB levofloxacin Allergy Unknown VERTIGO Verified 11/18/21 12:58 loratadine Allergy Unknown RASH Verified 11/18/21 12:58 zafirlukast Allergy Unknown GI UPSET Verified 11/18/21 12:58 divalproex sodium AdvReac Unknown SWELLING/WEIGHT Verified 11/18/21 12:58 [facility] GAIN Consultations 12/05/21 15:07 Consult Hospitalist Routine Procedures Performed Operation Date: 12/08/21 08:15 Actual Procedures p Right Total Knee Arthroplasty(Right) - Von Chirinos MD Ordered Studies 12/08/21 05:00 US - OR guided needle placemen Routine Hospital Course (1) Status post right knee replacement: 51 yo female stable POD #3 s/p right TKA 1. Med management 2. DVT prophylaxis- Xarelto, SCDs 3. PT/OT 4. D/C planning- home w/ OPPT, encouraged pt to be more active, encouraged d/c today if BP improves 51 yo female stable POD #2 s/p right TKA 1. Med management 2. DVT prophylaxis- Xarelto, SCDs 3. PT/OT 4. D/C planning- home w/ OPPT Postop day #1 right total knee arthroplasty -PT/OT -Pain management as written -DVT prophylaxis: SCDs, teds, Xarelto 10 mg daily. -AM labs as above.Hemoglobin is 11.4 this morning From 11.9 preop. -Discharge planning: Patient will be going home upon discharge. She is planning on outpatient therapy. Plan on discharge once stable likely tomorrow. We will see how she does with therapy and with her pain control later today. Lab Results 12/08/21 12/08/21 12/08/21 Range/Units 06:13 06:33 06:35 WBC (4.8-10.8) K/ul RBC (3.93-5.22) M/uL Hgb (12.0-16.0) g/dl Hct (34.1-44.9) % MCV (80.0-100.0) fL MCH (25.0-34.0) pg MCHC (32.0-36.0) g/dL RDW Std Deviation (36.4-46.3) fL RDW Coeff of Margarita (11.5-14.5) % Plt Count (130-400) K/uL MPV (9.4-12.3) fL Sodium (136-145) mmol/L Potassium (3.5-5.1) mmol/L Chloride (98-107) mmol/L Carbon Dioxide (21-32) mmol/L Anion Gap (3-11) BUN (6-23) mg/dl Creatinine (0.6-1.2) mg/dl Est Cr Clr Drug Dosing ml/min Est GFR ( Amer) ml/min Est GFR (Non-Af Amer) ml/min BUN/Creatinine Ratio (10-20) Glucose (70-99(Fasting)) mg/dl POC Glucose 325 H* 329 H* (70-99) mg/dl Calcium (8.5-10.1) mg/dl Magnesium (1.7-2.4) mg/dl Iron (35-150) mcg/dl TIBC (250-450) mcg/dl Unsaturated IBC (155-355) mcg/dl Transferrin % Sat (15-50) % Ferritin (8-388) ng/ml Vitamin B12 (180-914) pg/ml SARS-CoV-2, RNA, NAAT NEGATIVE (NEGATIVE) 12/08/21 12/08/21 12/08/21 Range/Units 08:47 09:59 11:12 WBC (4.8-10.8) K/ul RBC (3.93-5.22) M/uL Hgb (12.0-16.0) g/dl Hct (34.1-44.9) % MCV (80.0-100.0) fL MCH (25.0-34.0) pg MCHC (32.0-36.0) g/dL RDW Std Deviation (36.4-46.3) fL RDW Coeff of Margarita (11.5-14.5) % Plt Count (130-400) K/uL MPV (9.4-12.3) fL Sodium (136-145) mmol/L Potassium (3.5-5.1) mmol/L Chloride (98-107) mmol/L Carbon Dioxide (21-32) mmol/L Anion Gap (3-11) BUN (6-23) mg/dl Creatinine (0.6-1.2) mg/dl Est Cr Clr Drug Dosing ml/min Est GFR ( Amer) ml/min Est GFR (Non-Af Amer) ml/min BUN/Creatinine Ratio (10-20) Glucose (70-99(Fasting)) mg/dl POC Glucose 260 H 238 H 194 H (70-99) mg/dl Calcium (8.5-10.1) mg/dl Magnesium (1.7-2.4) mg/dl Iron (35-150) mcg/dl TIBC (250-450) mcg/dl Unsaturated IBC (155-355) mcg/dl Transferrin % Sat (15-50) % Ferritin (8-388) ng/ml Vitamin B12 (180-914) pg/ml SARS-CoV-2, RNA, NAAT (NEGATIVE) 12/08/21 12/08/21 12/08/21 Range/Units 13:06 17:25 17:26 WBC (4.8-10.8) K/ul RBC (3.93-5.22) M/uL Hgb (12.0-16.0) g/dl Hct (34.1-44.9) % MCV (80.0-100.0) fL MCH (25.0-34.0) pg MCHC (32.0-36.0) g/dL RDW Std Deviation (36.4-46.3) fL RDW Coeff of Margarita (11.5-14.5) % Plt Count (130-400) K/uL MPV (9.4-12.3) fL Sodium (136-145) mmol/L Potassium (3.5-5.1) mmol/L Chloride (98-107) mmol/L Carbon Dioxide (21-32) mmol/L Anion Gap (3-11) BUN (6-23) mg/dl Creatinine (0.6-1.2) mg/dl Est Cr Clr Drug Dosing ml/min Est GFR ( Amer) ml/min Est GFR (Non-Af Amer) ml/min BUN/Creatinine Ratio (10-20) Glucose (70-99(Fasting)) mg/dl POC Glucose 211 H 343 H* 390 H* (70-99) mg/dl Calcium (8.5-10.1) mg/dl Magnesium (1.7-2.4) mg/dl Iron (35-150) mcg/dl TIBC (250-450) mcg/dl Unsaturated IBC (155-355) mcg/dl Transferrin % Sat (15-50) % Ferritin (8-388) ng/ml Vitamin B12 (180-914) pg/ml SARS-CoV-2, RNA, NAAT (NEGATIVE) 12/08/21 12/09/21 12/09/21 Range/Units 20:58 00:02 04:09 WBC (4.8-10.8) K/ul RBC (3.93-5.22) M/uL Hgb (12.0-16.0) g/dl Hct (34.1-44.9) % MCV (80.0-100.0) fL MCH (25.0-34.0) pg MCHC (32.0-36.0) g/dL RDW Std Deviation (36.4-46.3) fL RDW Coeff of Margarita (11.5-14.5) % Plt Count (130-400) K/uL MPV (9.4-12.3) fL Sodium (136-145) mmol/L Potassium (3.5-5.1) mmol/L Chloride (98-107) mmol/L Carbon Dioxide (21-32) mmol/L Anion Gap (3-11) BUN (6-23) mg/dl Creatinine (0.6-1.2) mg/dl Est Cr Clr Drug Dosing ml/min Est GFR ( Amer) ml/min Est GFR (Non-Af Amer) ml/min BUN/Creatinine Ratio (10-20) Glucose (70-99(Fasting)) mg/dl POC Glucose 369 H* 207 H 172 H (70-99) mg/dl Calcium (8.5-10.1) mg/dl Magnesium (1.7-2.4) mg/dl Iron (35-150) mcg/dl TIBC (250-450) mcg/dl Unsaturated IBC (155-355) mcg/dl Transferrin % Sat (15-50) % Ferritin (8-388) ng/ml Vitamin B12 (180-914) pg/ml SARS-CoV-2, RNA, NAAT (NEGATIVE) 12/09/21 12/09/21 12/09/21 Range/Units 06:12 06:12 08:09 WBC 9.10 (4.8-10.8) K/ul RBC 3.82 L (3.93-5.22) M/uL Hgb 11.4 L (12.0-16.0) g/dl Hct 34.2 (34.1-44.9) % MCV 89.5 (80.0-100.0) fL MCH 29.8 (25.0-34.0) pg MCHC 33.3 (32.0-36.0) g/dL RDW Std Deviation 46.1 (36.4-46.3) fL RDW Coeff of Margarita 14.3 (11.5-14.5) % Plt Count 120 L (130-400) K/uL MPV 10.1 (9.4-12.3) fL Sodium 133 L (136-145) mmol/L Potassium 4.7 (3.5-5.1) mmol/L Chloride 104 (98-107) mmol/L Carbon Dioxide 23 (21-32) mmol/L Anion Gap 6 (3-11) BUN 20 (6-23) mg/dl Creatinine 0.90 (0.6-1.2) mg/dl Est Cr Clr Drug Dosing 85.4 ml/min Est GFR ( Amer) 86.4 ml/min Est GFR (Non-Af Amer) 74.6 ml/min BUN/Creatinine Ratio 22.2 H (10-20) Glucose 196 H (70-99(Fasting)) mg/dl POC Glucose 206 H (70-99) mg/dl Calcium 8.5 (8.5-10.1) mg/dl Magnesium (1.7-2.4) mg/dl Iron (35-150) mcg/dl TIBC (250-450) mcg/dl Unsaturated IBC (155-355) mcg/dl Transferrin % Sat (15-50) % Ferritin (8-388) ng/ml Vitamin B12 (180-914) pg/ml SARS-CoV-2, RNA, NAAT (NEGATIVE) 12/09/21 12/09/21 12/09/21 Range/Units 08:38 08:38 12:17 WBC (4.8-10.8) K/ul RBC (3.93-5.22) M/uL Hgb (12.0-16.0) g/dl Hct (34.1-44.9) % MCV (80.0-100.0) fL MCH (25.0-34.0) pg MCHC (32.0-36.0) g/dL RDW Std Deviation (36.4-46.3) fL RDW Coeff of Margarita (11.5-14.5) % Plt Count (130-400) K/uL MPV (9.4-12.3) fL Sodium (136-145) mmol/L Potassium (3.5-5.1) mmol/L Chloride (98-107) mmol/L Carbon Dioxide (21-32) mmol/L Anion Gap (3-11) BUN (6-23) mg/dl Creatinine (0.6-1.2) mg/dl Est Cr Clr Drug Dosing ml/min Est GFR ( Amer) ml/min Est GFR (Non-Af Amer) ml/min BUN/Creatinine Ratio (10-20) Glucose (70-99(Fasting)) mg/dl POC Glucose 234 H (70-99) mg/dl Calcium (8.5-10.1) mg/dl Magnesium (1.7-2.4) mg/dl Iron 48 (35-150) mcg/dl TIBC 359 (250-450) mcg/dl Unsaturated IBC 311 (155-355) mcg/dl Transferrin % Sat 13 L (15-50) % Ferritin 28.2 (8-388) ng/ml Vitamin B12 182 (180-914) pg/ml SARS-CoV-2, RNA, NAAT (NEGATIVE) 12/09/21 12/09/21 12/10/21 Range/Units 17:06 20:33 00:12 WBC (4.8-10.8) K/ul RBC (3.93-5.22) M/uL Hgb (12.0-16.0) g/dl Hct (34.1-44.9) % MCV (80.0-100.0) fL MCH (25.0-34.0) pg MCHC (32.0-36.0) g/dL RDW Std Deviation (36.4-46.3) fL RDW Coeff of Margarita (11.5-14.5) % Plt Count (130-400) K/uL MPV (9.4-12.3) fL Sodium (136-145) mmol/L Potassium (3.5-5.1) mmol/L Chloride (98-107) mmol/L Carbon Dioxide (21-32) mmol/L Anion Gap (3-11) BUN (6-23) mg/dl Creatinine (0.6-1.2) mg/dl Est Cr Clr Drug Dosing ml/min Est GFR ( Amer) ml/min Est GFR (Non-Af Amer) ml/min BUN/Creatinine Ratio (10-20) Glucose (70-99(Fasting)) mg/dl POC Glucose 217 H 251 H 237 H (70-99) mg/dl Calcium (8.5-10.1) mg/dl Magnesium (1.7-2.4) mg/dl Iron (35-150) mcg/dl TIBC (250-450) mcg/dl Unsaturated IBC (155-355) mcg/dl Transferrin % Sat (15-50) % Ferritin (8-388) ng/ml Vitamin B12 (180-914) pg/ml SARS-CoV-2, RNA, NAAT (NEGATIVE) 12/10/21 12/10/21 12/10/21 Range/Units 06:47 07:57 11:58 WBC (4.8-10.8) K/ul RBC (3.93-5.22) M/uL Hgb (12.0-16.0) g/dl Hct (34.1-44.9) % MCV (80.0-100.0) fL MCH (25.0-34.0) pg MCHC (32.0-36.0) g/dL RDW Std Deviation (36.4-46.3) fL RDW Coeff of Margarita (11.5-14.5) % Plt Count (130-400) K/uL MPV (9.4-12.3) fL Sodium 132 L (136-145) mmol/L Potassium 4.4 (3.5-5.1) mmol/L Chloride 101 (98-107) mmol/L Carbon Dioxide 27 (21-32) mmol/L Anion Gap 4 (3-11) BUN 25 H (6-23) mg/dl Creatinine 1.05 (0.6-1.2) mg/dl Est Cr Clr Drug Dosing 73.2 ml/min Est GFR ( Amer) 71.7 ml/min Est GFR (Non-Af Amer) 61.9 ml/min BUN/Creatinine Ratio 23.8 H (10-20) Glucose 194 H (70-99(Fasting)) mg/dl POC Glucose 185 H 279 H (70-99) mg/dl Calcium 8.3 L (8.5-10.1) mg/dl Magnesium 1.8 (1.7-2.4) mg/dl Iron (35-150) mcg/dl TIBC (250-450) mcg/dl Unsaturated IBC (155-355) mcg/dl Transferrin % Sat (15-50) % Ferritin (8-388) ng/ml Vitamin B12 (180-914) pg/ml SARS-CoV-2, RNA, NAAT (NEGATIVE) 12/10/21 12/10/21 12/11/21 Range/Units 17:08 20:39 07:58 WBC (4.8-10.8) K/ul RBC (3.93-5.22) M/uL Hgb (12.0-16.0) g/dl Hct (34.1-44.9) % MCV (80.0-100.0) fL MCH (25.0-34.0) pg MCHC (32.0-36.0) g/dL RDW Std Deviation (36.4-46.3) fL RDW Coeff of Margarita (11.5-14.5) % Plt Count (130-400) K/uL MPV (9.4-12.3) fL Sodium (136-145) mmol/L Potassium (3.5-5.1) mmol/L Chloride (98-107) mmol/L Carbon Dioxide (21-32) mmol/L Anion Gap (3-11) BUN (6-23) mg/dl Creatinine (0.6-1.2) mg/dl Est Cr Clr Drug Dosing ml/min Est GFR ( Amer) ml/min Est GFR (Non-Af Amer) ml/min BUN/Creatinine Ratio (10-20) Glucose (70-99(Fasting)) mg/dl POC Glucose 138 H 146 H 165 H (70-99) mg/dl Calcium (8.5-10.1) mg/dl Magnesium (1.7-2.4) mg/dl Iron (35-150) mcg/dl TIBC (250-450) mcg/dl Unsaturated IBC (155-355) mcg/dl Transferrin % Sat (15-50) % Ferritin (8-388) ng/ml Vitamin B12 (180-914) pg/ml SARS-CoV-2, RNA, NAAT (NEGATIVE) 12/11/21 Range/Units 12:00 WBC (4.8-10.8) K/ul RBC (3.93-5.22) M/uL Hgb (12.0-16.0) g/dl Hct (34.1-44.9) % MCV (80.0-100.0) fL MCH (25.0-34.0) pg MCHC (32.0-36.0) g/dL RDW Std Deviation (36.4-46.3) fL RDW Coeff of Margarita (11.5-14.5) % Plt Count (130-400) K/uL MPV (9.4-12.3) fL Sodium (136-145) mmol/L Potassium (3.5-5.1) mmol/L Chloride (98-107) mmol/L Carbon Dioxide (21-32) mmol/L Anion Gap (3-11) BUN (6-23) mg/dl Creatinine (0.6-1.2) mg/dl Est Cr Clr Drug Dosing ml/min Est GFR ( Amer) ml/min Est GFR (Non-Af Amer) ml/min BUN/Creatinine Ratio (10-20) Glucose (70-99(Fasting)) mg/dl POC Glucose 164 H (70-99) mg/dl Calcium (8.5-10.1) mg/dl Magnesium (1.7-2.4) mg/dl Iron (35-150) mcg/dl TIBC (250-450) mcg/dl Unsaturated IBC (155-355) mcg/dl Transferrin % Sat (15-50) % Ferritin (8-388) ng/ml Vitamin B12 (180-914) pg/ml SARS-CoV-2, RNA, NAAT (NEGATIVE) Total Time Total Time Spent Total Time Spent (In Minutes): 20 Discharge Plan Discharge Items Patient Disposition: Home - Self-Care Reason For Visit: RIGHT TKA Discharge Diagnosis: right knee osteoarthritis Activity: Per Instructions section Non-emergency contact: Surgeon Call non-emergency contact if: you have any medication questions, your pain is not controlled, your pain is concerning for you, you have a fever, your temperature is above 101, your wound has increased redness and your wound has in creased drainage Follow-up/Referrals: Sandra Babcock, [Primary Care Provider] - Diet: Carb Consistent or DM2 Addtl Attending Provider Instructions: ACTIVITY RECOMMENDATIONS: SELF CARE INSTRUCTIONS AFTER TOTAL KNEE REPLACEMENT A. You may need to continue a physical therapy program after discharge from the hospital. There are several options available to you. Your doctor will assist you in selecting the best one for you. 1. An out-patient facility 2 to 3 times a week for therapy or home therapy. 2. Continue working on all exercises taught to you in the hospital. Your goals should be to increase bending of your knee to 90 degrees and beyond and to fully straighten your knee. B. You may progress at your own pace from walking with a walker or crutches to a cane; then to no assistive devices. C. Make walking a part of your daily routine. Be up as much as comfortable with rest periods throughout the day. Rest with leg elevation is very important. Use the ice wrap frequently for the first 3-4 weeks. D. There are no restrictions on activities. You may ride in a car, shop, participate in access specialist and all social activities. E. Wear the long elastic stockings (NIKO hose) 20 hours a day for 2 weeks after surgery. They can be removed several times a day for laundering and for a bath. F. You may shower, no tub baths until cleared by your doctor. SPECIAL CARE INSTRUCTIONS: VERY IMPORTANT TO READ AND REVIEW A. There are a few signs you need to watch for after you are home. Call [facility] if you notice any of the followin. Increased severe knee pain. Some pain is expected especially when you exercise. 2. Increased swelling in your leg or knee; pain or swelling of the calf muscle in either lower leg. 3. Any fluid drainage from the incision. 4. Shortness of breath or chest pain. B. Please call [facility] at if you have any concerns or questions about your operation or recovery. The doctor or his nurse will return your call promptly. C. You must take antibiotics before dental work, bladder, bowel or other surgery. Your doctor will provide you with a permanent care to carry describing this precaution. IMPORTANT: * REMEMBER TO TAKE ASPIRIN, 81 MG, TWICE DAILY FOR 4 WEEKS UNLESS OTHERWISE DIRECTED. THIS IS YOUR BLOOD THINNER. * HIGH RISK PATIENTS MAY BE PRESCRIBED A STRONGER BLOOD THINNER. THIS WILL BE PROVIDED AT DISCHARGE. * CALL IF INCREASED PAIN, REDNESS, DRAINAGE OR FEVER GREATER THAT 101. * WEAR NIKO HOSE 20 HOURS PER DAY FOR 2 WEEKS. This is a large suction dressing covering your incision. This will help pull any excess drainage from the wound and allow your incision to heal properly. You may shower with this if you can keep the unit outside of the shower. If any bleeding or leakage is noted please call your doctor's office. This will remain on your incision for 7 days and then should be removed. This can be done yourself or by the home nursing staff if applicable. The entire unit is disposable once removed. Once removed, keep incision clean and dry. If redness or drainage is noted, please call your surgeon. IF INCISION IS LEAKING THROUGH DRESSING, CALL THE OFFICE . FOLLOW UP VISIT: If appointment is not already scheduled: Please call [facility] to make a follow-up appointment for 2 weeks after your surgery at . 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 B12 was low normal, likely secondary to diet/metformin use and you were given injections inpatient and should continue oral supplementation at discharge 1000mcg daily. Your iron was also low normal and we recommended oral iron supplementation at least daily vs other day. This can cause constipation so need to be cautious with pain medication and take stool softeners if this occurs. This can also cause stools to be darker in color. Pending Studies at Discharge: No Stand-Alone Forms: My [facility], Opioid Pain Management, Smoking Cessation Medications and DC Order Prescriptions: New acetaminophen [Tylenol Extra Strength] 500 mg Tablet 1,000 mg PO Q8 Qty: 60 0RF Xarelto 10 mg Tablet 10 mg PO DAILY Qty: 30 0RF oxycodone 5 mg Tablet 5 - 10 mg PO .Q4h-6h MDD 6 PRN (Reason: pain) Qty: 30 0RF Rx Instructions: Ongoing therapy, Dr. Chirinos supervising cefadroxil 500 mg capsule 500 mg PO BID Qty: 28 0RF ferrous sulfate 325 mg (65 mg iron) tablet 325 mg PO DAILY Qty: 30 0RF cyanocobalamin (vitamin B-12) 1,000 mcg tablet 1,000 mcg PO DAILY Qty: 30 0RF Xarelto 10 mg tablet 10 mg PO DAILY 28 Days Qty: 28 0RF oxycodone 5 mg tablet 5 - 10 mg PO Q6H PRN (Reason: pain) Qty: 18 0RF Rx Instructions: Max 6 tablets daily acetaminophen 500 mg capsule 1,000 mg PO Q6H MDD 3000mg PRN (Reason: pain) Qty: 60 0RF Continued (DME) pen needle, diabetic [BD Ultra-Fine Short Pen Needle] 31 gauge x 5/16" needle See Rx Instructions .Route Qty: 100 3RF Rx Instructions: As directed to inject insulin twice daily Vyepti 100 mg/mL solution 100 mg IV .COMPLEX Qty: 1 3RF Rx Instructions: 100 mg IV EVERY THREE MONTHS, PREMEDICATE WITH 50MG IV BENADRYL; pull up - adult large See Rx Instructions .ROUTE .COMPLEX Qty: 180 5RF Rx Instructions: 6 x a day. metformin 1,000 mg tablet 1,000 mg PO BID Qty: 60 2RF pantoprazole 40 mg tablet,delayed release (DR/EC) See Rx Instructions .ROUTE .COMPLEX Qty: 120 2RF Dose Instruction: TAKE 1 TABLET BY MOUTH TWICE DAILY 30 MINUTES BEFORE BREAKFAST AND DINNER Rx Instructions: TAKE 1 TABLET BY MOUTH TWICE DAILY 30 MINUTES BEFORE BREAKFAST AND DINNER loperamide 2 mg capsule 2 mg PO Q6H PRN (Reason: Diarrhea) albuterol sulfate [Ventolin HFA] 90 mcg/actuation HFA aerosol inhaler 2 puff inhalation Q6H PRN (Reason: shortness of breath) (DME) lancets 30 gauge misc See Rx Instructions .ROUTE .MEDSUPPLY Qty: 100 0RF Rx Instructions: As directed, Take glucose fasting daily. (DME) blood-glucose meter Misc See Rx Instructions .ROUTE .MEDSUPPLY Qty: 1 0RF Rx Instructions: As directed zolmitriptan [Zomig] 5 mg tablet 5 mg PO .COMPLEX PRN (Reason: migraine headache) Qty: 9 5RF Rx Instructions: take 1 tab at onset of headache; if no relief may repeat 1 tab in 2hr, limit 2-3 days a week (DME) Blood Glucose Test Strip See Rx Instructions .ROUTE .MEDSUPPLY Qty: 100 0RF Rx Instructions: As directed, DX. E11.9 Check glucose TID bupropion HCl 100 mg tablet 100 mg PO BID (DME) nebulizer accessories Kit See Rx Instructions .Route Qty: 1 0RF Rx Instructions: As directed (DME) compressor, for nebulizer Device See Rx Instructions .Route Qty: 1 0RF Rx Instructions: As directed albuterol sulfate 2.5 mg /3 mL (0.083 %) solution for nebulization 2.5 mg inhalation QID PRN (Reason: shortness of breath or wheezing) Qty: 180 1RF fluoxetine 40 mg capsule 30 mg PO QAM gabapentin 400 mg capsule 400 mg PO TID Qty: 90 2RF lamotrigine 25 mg tablet 50 mg PO HS Trulicity 4.5 mg/0.5 mL pen injector 4.5 mg subcut .weekly Qty: 2 2RF aripiprazole 10 mg tablet 10 mg PO QPM clonidine HCl 0.1 mg Tablet 0.1 mg PO HS fluoxetine 20 mg Capsule 40 mg PO HS fluticasone furoate-vilanterol [Breo Ellipta] 100-25 mcg/dose Blister With Device 2 inh INHALATION QAM lisinopril 5 mg tablet 5 mg PO QAM insulin lispro protamin-lispro 100 unit/mL (75-25) insulin pen 45 unit SUBCUT BID Discontinued etodolac 300 mg capsule 300 mg PO BID Discharge Orders: Discharge Order (Routine); Ordered 12/11/21 Ordered By: Benjy West/Other Patient Handouts: DVT Post Op Prevention Admission Data Admit Date/Time: 12/08/21 11:19 Attending Provider: Von Chirinos Admit Provider: Von Chirinos Primary Care Provider: Sandra Babcock Other Providers: Baljinder Ocasio Natalie B. Other Interventions: Discharge Summary Assessment (RN) Last Done: 12/11/21 13:38
== END 2021-12-11 14:29 | disposition home or self-care (01) ==
LOC: 3E 06:04 → ASU 06:04